=== PATIENT | male | born 1975 | race African-American/Black ===

== ENCOUNTER 2017-02-01 00:29 | Observation (INO) | payer SELFPAY ==
[2017-02-01 03:12] LABS: Troponin I Less than 0.010 ng/mL (< 0.028)
[2017-02-01 04:42] VITALS: BMI 36.8
[2017-02-01 05:12] LABS: #Basophils 0.1 thou/uL (0.0-0.2); #Eosinphils 0.7 thou/uL (0.0-0.7); #Monocytes 0.8 thou/uL (0.11-0.59); #Neutrophils 5.8 thou/uL (1.40-6.50); %Basophils 0.6 % (0.0-1.0); %Eosinophils 6.9 % (0.0-10.0); %Lymphocytes 29.2 % (21.0-51.0); %Monocytes 7.5 % (0.0-10.0); Mean Platelet Volume 7.7 fL (7.4-10.4); Red Blood Cell (RBC) Count 4.68 mill/uL (4.70-6.10); White Blood Cell (WBC) Count 10.4 thou/uL (4.8-10.8)
[2017-02-01 05:33] LABS: Anion Gap 11 mmol/L (10-20); BUN (Urea Nitrogen) 11 mg/dL (8.9-20.6); Calc. Creatinine Clearance 172 mL/min (70-130); Calcium 9.1 mg/dL (7.8-10.44); Carbon Dioxide 26 mmol/L (22-29); Chloride 104 mmol/L (98-107); Cholesterol 161 mg/dl (< 200 Desired); Estimated GFR-MDRD Greater than 90; LDL Cholesterol, Calculated 103 mg/dL
[2017-02-01] MEDS ORDERED: Nicotine 14 MG PATCH TD SCH (06:00)
--- NOTE | 2017-02-01 06:06 | HP-2 ---
DATE OF ADMISSION: 02/01/2017 at 0307 hours DATE OF SERVICE: 02/01/2017 CODE STATUS: FULL. PRIMARY CARE PHYSICIAN: Arsh ramsay. ATTENDING: Carlos Mallory MD PGY1: Graciela Caruso MD HISTORIAN: Patient. CHIEF COMPLAINT: Not feeling well and palpitations. HISTORY OF PRESENT ILLNESS: Mr. Hdez is a 41-year-old male with no past medical history who presents with a chief complaint of heart palpitations. The patient states he was walking from his bedroom to the kitchen when he noticed that his heart started beating fast. He said this never happened before. He said that he then went and laid down and felt better afterward. This occurred yesterday evening at approximately 6:00 p.m. in the evening. He did not take any medications for it at home. He denied chest pain. He denied shortness of breath. He denied nausea, vomiting, diaphoresis. The patient said that the palpitations went completely away after lying down. Once again states this has never happened before. PAST MEDICAL HISTORY: Denies, although states that he has taken medicine for acid reflux in the past. PAST SURGICAL HISTORY: Appendectomy. ALLERGIES: No known drug allergies. MEDICATIONS: Denies. FAMILY HISTORY: Patient states his mom has a defibrillator placed and had an TN in her 50s. The patient states dad had bypass surgery and had TN at 50 years old. SOCIAL HISTORY: The patient states that he smokes about 1 pack per week for 27 years. Patient states he drinks 2-3 alcohol drinks every 2-3 weeks. The patient states that he smokes marijuana every other day. REVIEW OF SYSTEMS: General: Denies fevers, chills, weight changes, sleep change, night sweats, or fatigue. Respiratory: Denies cough, congestion, or shortness of breath. Cardiovascular: Denies chest pain or palpitation. Gastrointestinal: Denies nausea, vomiting, or diarrhea. Musculoskeletal: Denies pain, tenderness, or stiffness. Neurologic: Denies weakness, numbness, or syncope. Psychiatric: Denies anxiety, depression. PHYSICAL EXAMINATION: VITAL SIGNS: Blood pressure 153/100. Pulse is 70, respiratory rate 19, T-max 98, pulse ox 90% on room air. Current weight 116 kilograms. GENERAL: Alert and oriented x4, in no apparent distress, well-developed, well- nourished, obese, appropriately interactive. EYES: PERRLA, EOMI. NECK: Supple. No lymphadenopathy or thyromegaly. CARDIOVASCULAR: Regular rate and rhythm. No murmurs, rubs, or gallops. 2+ pedal and radial pulse. RESPIRATORY: Normal effort, no retractions. Clear to auscultation bilaterally. SKIN: Warm and dry. ABDOMEN: Soft, nontender to palpation. Bowel sounds in all 4 quadrants. No masses or distention. EXTREMITIES: No edema. MUSCULOSKELETAL: Structure within normal limits. Tone within normal limits. Muscle strength 5/5. NEUROLOGIC: Denies focal deficits. Sensation within normal limits. Cranial nerves II through XII intact. GCS of 15. PSYCHIATRIC: Appropriate. LABORATORY DATA: 1. CBC: 11.4, 14.1, 42.6, 259. 2. CMP: 138, 3.7, 106, 22, 13, 0.96, 93. 3. AST, ALT, alkaline phosphatase 19, 15, 119. 4. Total bilirubin 0.4. 5. Magnesium 2.1. 6. CK-MB 2.3. 7. Troponin less than 0.010 x2. 8. Urinalysis negative for blood, protein, leukocyte esterase, nitrites, ketones, glucose, red blood cells, white blood cells, and bacteria. Specific gravity 1.015. 9. UDS positive for marijuana. 10. TSH 1.0681. DIAGNOSTIC DATA: EK. ST depressions, T-wave inversions in leads II and aVF. 2. Normal sinus rhythm, left atrial enlargement. ASSESSMENT AND PLAN: A 41-year-old male with a family history of myocardial infarction and coronary artery disease, presents with palpitations and a funny feeling in his chest with ST depressions and T-wave inversions concerning or describes palpitations on exertion, admitted for palpitations with a concerning EKG. 1. Palpitations. Patient has a concerning family history of TN in mom and dad with new onset palpitations of unknown origin with ST depressions and T-wave inversions on initial EKG, however, with negative troponin and no active chest pain. We will admit the patient overnight and monitor on tele. If patient developed chest pain, we will order an additional EKG. We will plan for an exercise stress test on the treadmill in the morning since the patient has EKG changes and a positive family history as well as a smoking history. We will continue to trend the patient's troponins. We will also order a TSH. If the stress test in the morning is normal and workup for CAD is negative, we will recommend that the patient may need an event monitor in the outpatient setting to help to record a possible cardiac event such as an arrhythmia causing the palpitations described above. These palpitations are new in onset and of unknown origin however resolved. We will monitor the patient on telemetry. We will order a TSH and will plan for a cardiac exercise stress test in the morning. 2. Hypertension, new onset. We will start a calcium channel logan after patient completes his stress test in the morning. We also will order a lipid profile. 3. Drug abuse. Patient was positive for marijuana on sequential compression devices and endorses marijuana use every other day. We will rehabilitation counselor the patient on cessation. The patient also endorses a smoking history of 27 years. We will rehabilitation counselor the patient on smoking cessation as well as provide a nicotine patch. 4. Deep venous thrombosis prophylaxis. We will provide the patient with sequential compression devices. DISPOSITION AND LENGTH OF STAY: Two days. Symptomatic medications will be provided. History and physical exam as well as management discussed with Dr. Mallory. Patient seen on rounds and reviewed. I agree with leung portions of H&P above. 41 year old who presents with palpitations and funny feeling in his chest without chest pain. He is a smoker and likely has longstanding untreated hypertension. His EKG show some lateral ST-T wave changes and looks like LVH. We will check troponins and stress test. He needs to start treatment for his hypertension. We have advised that he stop smoking and DC marijuana usage. RC Mallory MD [facility]
[2017-02-01 06:13] LABS: Troponin I Less than 0.010 ng/mL (< 0.028)
[2017-02-01 12:24] VITALS: BP 161/104; TEMP 97.3
--- NOTE | 2017-02-01 15:07 | NM ---
MYOCARDIAL PERFUSION EVALUATION: DATE: 02/01/17 INDICATION: Chest pain and palpitations. RADIOPHARMACEUTICAL: 31 mCi technetium-99m sestamibi with stress and 9 mCi technetium-99m sestamibi with rest. FINDINGS: There is left ventricular dilatation on both the stress and rest images. No reversible myocardial per fusion defect is evident. There is normal wall motion and thickening. The estimated LVEF is 49%. IMPRESSION: 1. No scintigraphic evidence of reversible myocardial ischemia. 2. Left ventricular dilatation seen on both the rest and stress images. 3. LVEF estimated at 49%. POS: [facility]
--- NOTE | 2017-02-01 23:44 | DIS-2 ---
DATE OF ADMISSION: 02/01/2017 DATE OF DISCHARGE: 02/01/2017 RESIDENT: Ghada Molina DO ADMITTING ATTENDING: Dr. Estuardo Watkins. DISCHARGE ATTENDING: Dr. Carlos Mallory. CONSULTATIONS: None. PROCEDURES: Nuclear medicine cardiac stress with ejection fraction: No evidence of reversible myocardial ischemia. Left ventricular dilatation seen on both the rest and stress images. Left ventricular ejection fraction estimated at 49%. PRIMARY DIAGNOSES: 1. Symptomatic palpitations likely drug induced. 2. Atypical chest pain. SECONDARY DIAGNOSES: 1. Hypertension, newly diagnosed. 2. Marijuana abuse. 3. Family history of early coronary artery disease. DISCHARGE MEDICATIONS: Hydrochlorothiazide 12.5 mg p.o. q.a.m. HISTORY OF PRESENT ILLNESS AND HOSPITAL COURSE: This is a 41-year-old male with no significant past medical history who presented with a chief complaint of heart palpitations. The patient noted these palpitations while walking from his bedroom to the kitchen. He stated that he had a feeling that his heart was beating fast. The patient states that this has happened before, but never to this extent. He felt better after lying down. The patient states that he did not take any new medications at home; however, he had been smoking marijuana prior to the onset of palpitations. He denied any chest pain or shortness of breath. The patient also denied nausea, vomiting, or diaphoresis. Palpitations completely resolved prior to arrival to the emergency department in [place]. The patient was transferred to [facility] in [place], [place] for further evaluation. He was given aspirin. Patient continued to do well and he was observed for greater than 12 hours. During that time, there were no events on telemetry. Additionally, EKG as [facility] was unremarkable. Patient's troponins were negative x3. Fasting lipid panel was within normal limits. Patient's heart score was 3.8. Risk factors include early family history of coronary artery disease. Mother and father both had heart attacks in their 50s. The patient has a history of drug abuse. He admits to using marijuana; however, he denies methamphetamine abuse. Patient is a chronic smoker, he smokes about 1 pack per day and has been doing so for the past 27 years. He also consumes about 2-3 alcoholic drinks every 2-3 weeks. The patient remained stable throughout the course of his hospital stay. A cardiac nuclear stress test was performed to evaluate for myocardial ischemia since there were some ST depression and some T-wave inversions on initial EKG at ED in [place]. Cardiac stress test was negative for any signs of ischemia and ejection fraction was preserved at 49%. Of note, the patient did have elevated blood pressure while in the hospital. He has likely had elevated blood pressure for a long period of time. However, he does not follow with a primary care physician. He was counseled on the necessity for strict blood pressure control to prevent hypertensive cardiomyopathy and secondary congestive heart failure. Hydrochlorothiazide was started. Patient was advised to take this medication at home on a daily basis and to follow up with [facility] for further management from a primary care standpoint. The patient understood the necessity for close followup to ensure that his blood pressure is well controlled. The need for Holter monitoring if palpitations persist was also discussed. Patient was advised that he could do this as an outpatient. DISPOSITION: Stable. DISCHARGE INSTRUCTIONS: 1. Location: Home. 2. Diet: Regular. 3. Activity: As tolerated. 4. Followup: The patient is to follow up with [facility] within the next 7 days for further evaluation of palpitations and further management of hypertension. The patient was in understanding of the plan and agreeable. STEPHAN
[2017-02-02 07:28] LABS: Hepatitis A Total ABS Negative (Negative)
[2017-02-03 13:15] LABS: Hep B Surface AG-Rflx Sendout Negative (Negative); Hepatitis B Core Total Negative (Negative); Hepatitis B Surface AB-Sendout Non Reactive (.); Hepatitis B little e Antibody Negative (Negative); Hepatitis B little e Antigen Negative (Negative)
== END 2017-02-01 17:55 | disposition home or self-care (01) ==
LOC: ERS 00:29 → 2SW 03:52
PROVIDERS: ADMIT Family Medicine; ATTEND Family Medicine
DX: R00.2 Palpitations (principal); R07.89 Other chest pain; I10 Essential (primary) hypertension; F12.10 Cannabis abuse, uncomplicated; F17.210 Nicotine dependence, cigarettes, uncomplicated; Z82.49 Family history of ischemic heart disease and other diseases of the circulatory system
CPT/HCPCS: 36415; 78452; 80048; 80061; 82553; 84443; 84484; 85025; 86704; 86705; 86706; 86707; 86708; 86780; 86803; 87340; 87350; 87389; 93005; 93017; 99406; A9500; G0378; J0153

== ENCOUNTER 2018-03-16 11:56 | Inpatient (IN) | payer SELFPAY ==
[2018-03-16] MEDS ORDERED: Bupivacaine/Epinephrine 0.25% 30 ML VIAL ONE (14:31)
[2018-03-16] MEDS ORDERED: Promethazine HCl 25 MG/ML VIAL IM PRN ×2 (14:32→18:01)
[2018-03-16] MEDS ORDERED: Meperidine HCl/PF 25 MG/ML VIAL SLOW IVP PRN (14:32)
[2018-03-16] MEDS ORDERED: Ketorolac Tromethamine 30 MG/ML VIAL IVP PRN (14:32)
[2018-03-16] MEDS ORDERED: Ondansetron HCl/PF 4 MG/2 ML Vial IVP PRN ×2 (14:32→18:01)
[2018-03-16] MEDS ORDERED: Promethazine HCl 25 MG/ML VIAL SLOW IVP PRN ×2 (14:32→18:01)
[2018-03-16] MEDS ORDERED: Fentanyl 250 MCG/5 ML VIAL ONE (14:35)
[2018-03-16] MEDS ORDERED: Famotidine/PF 20 mg/2ml Vial ONE (14:35)
[2018-03-16] MEDS ORDERED: Fentanyl 100 MCG/2 ML VIAL ONE (14:35)
[2018-03-16] MEDS ORDERED: Piperacillin/Tazobactam 3.375 GM VIAL ONE (15:00)
[2018-03-16] MEDS ORDERED: Sodium Chloride 0.9% 100 ML ONE (15:01)
--- NOTE | 2018-03-16 15:39 | HP ---
CHIEF COMPLAINT: Abdominal pain. HISTORY OF PRESENT ILLNESS: Mr. Hdez is a 42-year-old man, who had sudden onset of lower abdominal crampy abdominal pain this morning. He states that he had a similar episode about a week ago, but he took some Gas-X and it went away. He does have chronic constipation, but has not had any problems with his bowel before. Today, the pain was not getting any better, and it finally got to the point where he could not stand it, so he came into the emergency room. He states that he was having nausea, vomiting, fevers, and chills by that time. He was found to be diffusely tender, and a CT scan showed free air and free fluid in the abdomen without an obvious source. He was started on IV antibiotics and transferred to [facility] for further care. He is still having diffuse abdominal pain. The only worsening factor that he can identify is movement. He has not identified any alleviating factors. PAST MEDICAL HISTORY: Hypertension. PAST SURGICAL HISTORY: Appendectomy. FAMILY HISTORY: Hypertension. SOCIAL HISTORY: He smokes marijuana, drinks rarely, and occasionally smokes 1 to 2 cigarettes. No other illicit drugs. MEDICATIONS: None. ALLERGIES: NO KNOWN DRUG ALLERGIES. REVIEW OF SYSTEMS: Ten-system review of systems is negative except per HPI. PHYSICAL EXAMINATION: VITAL SIGNS: The patient was tachycardic in the emergency room with normal vital signs. GENERAL: Reveals a healthy-appearing man, in no acute distress. He is not flushed or toxic in appearance. He is not diaphoretic. He is not jaundiced or icteric. HEENT: Unremarkable. NECK: Supple without lymphadenopathy or thyroid nodules. HEART: Irregular in its heart rhythm. He is slightly tachycardic. No murmurs, rubs, or gallops. LUNGS: Clear to auscultation bilaterally. ABDOMEN: Soft and nondistended. He does not have any palpable masses or hernias. He is diffusely tender to palpation, but more so in the lower abdomen and suprapubic area. EXTREMITIES: Warm and well perfused without edema. NEUROLOGIC: No focal deficits. PSYCHIATRIC: Alert, oriented, and appropriate. LABORATORY DATA: White count is high normal at 10.5 with 71% segmented neutrophils. Electrolytes are unremarkable except for a slightly low potassium of 3.3. LFTs and lipase are normal. CT images are reviewed, and I agree with the written report. He has multiple colonic diverticula without obvious diverticulosis. There are sort of diffuse inflammatory changes, free fluid, and free air throughout the abdomen. ASSESSMENT: Perforated viscus of unclear etiology. Most of his pain and tenderness are in the lower abdomen, which suggest a colonic etiology such as a perforated diverticulum, but a small bowel or upper GI etiology such as peptic ulcer disease is also possible. I have recommended laparoscopic evaluation with Murali patch or repair of ulcer disease if located, small bowel repair or resection if identified, or possible colonic resection and colostomy if colonic perforation is identified. Given the presence of diverticula, it is possible this was a perforated diverticulum, which may or may not still be leaking. If this appears to have sealed, then the laparoscopic washout may be appropriate without resection; however, the patient is consented for colostomy if indicated. Inherent risks of the surgery include, but are not limited to, bleeding, infection, risks of anesthesia, damage to internal organs, need for re-operation, and need for open surgery. He understands and accepts these risks and wishes to proceed. He received Zosyn in the emergency room, and this will be continued perioperatively. All of his questions were answered. Job ID: [id number]
[2018-03-16] MEDS ORDERED: Succinylcholine Chloride 20 MG/ML 10 ml SYRINGE FS ONE (16:13)
[2018-03-16] MEDS ORDERED: Dexamethasone 20 MG/5 ML VIAL ONE (16:13)
[2018-03-16] MEDS ORDERED: Esmolol 100 MG/10 ML VIAL ONE (16:13)
[2018-03-16] MEDS ORDERED: PROPOFOL 200 MG/20 ML VIAL ONE (16:13)
[2018-03-16] MEDS ORDERED: Rocuronium Bromide 10 MG/ML (10ML VIAL) ONE (16:13)
[2018-03-16] MEDS ORDERED: Lidocaine 1% PF 5 ML VIAL ONE (16:13)
[2018-03-16] MEDS ORDERED: Glycopyrrolate 0.2 MG/ML 5 ML SYRINGE ONE (16:13)
[2018-03-16] MEDS ORDERED: HYDROmorphone 2 MG/ML VIAL ONE (16:37)
[2018-03-16] MEDS ORDERED: Morphine 10 MG/ML VIAL SLOW IVP PRN (18:21)
[2018-03-16] MEDS ORDERED: Ondansetron PF 4 MG/2 ML Vial IVP PRN (18:23)
[2018-03-16 18:55] VITALS: BMI 34.7
[2018-03-16] MEDS: D5 1/2 NS w/20 mEq KCL 1,000 ML IV SCH (20:16)
[2018-03-16] MEDS: Pantoprazole 40 MG VIAL IVP SCH (20:16)
[2018-03-16] MEDS: Piperacillin/Tazobactam 3.375 GM in Sodium Chloride 0.9% 100 ML IVPB SCH (20:26)
[2018-03-16] MEDS: Morphine 4 MG/ML VIAL SLOW IVP PRN (21:23)
[2018-03-17] MEDS: Morphine 4 MG/ML VIAL SLOW IVP PRN ×4 (00:01→21:07)
[2018-03-17] MEDS: Acetaminophen 1,000 MG in Premix Bag 1 BAG IVPB SCH ×5 (00:01→23:16)
[2018-03-17] MEDS: Ketorolac Tromethamine 30 MG/ML VIAL IVP PRN (03:55)
[2018-03-17] MEDS: Piperacillin/Tazobactam 3.375 GM in Sodium Chloride 0.9% 100 ML IVPB SCH ×4 (03:55→19:53)
[2018-03-17] MEDS: D5 1/2 NS w/20 mEq KCL 1,000 ML IV SCH ×4 (04:04→23:28)
[2018-03-17 07:24] LABS: Hemoglobin 12.7 g/dL (14.0-18.0); Mean Corpuscular Hemoglobin 29.6 pg (27.0-31.0); Mean Corpuscular Volume 89.8 fL (78.0-98.0); Mean Platelet Volume 7.5 fL (7.4-10.4); Platelet Count 413 thou/uL (130-400); RBC Distribution Width 12.1 % (11.5-14.5); Red Blood Cell (RBC) Count 4.29 mill/uL (4.70-6.10); White Blood Cell (WBC) Count 20.2 thou/uL (4.8-10.8)
[2018-03-17 07:34] LABS: Anion Gap 12 mmol/L (10-20); BUN (Urea Nitrogen) 11 mg/dL (8.9-20.6); Calc. Creatinine Clearance 144 mL/min (70-130); Calcium 9.2 mg/dL (7.8-10.44); Carbon Dioxide 25 mmol/L (22-29); Chloride 104 mmol/L (98-107); Estimated GFR-MDRD 83; Glucose 143 mg/dL (70-105); Potassium 4.8 mmol/L (3.5-5.1); Sodium 136 mmol/L (136-145)
[2018-03-17 08:04] LABS: Band 5 % (5-11); Lymphocytes 5 % (21-51); MDiff Complete? YES; Monocytes 3 % (0-10); Neutrophil 85 % (42-75); RBC Morphology Normal; Reactive Lymphocytes 2 % (0-10)
[2018-03-17] MEDS: Enoxaparin Sodium 40 MG/0.4 ML SYRINGE SC SCH (09:18)
[2018-03-17] MEDS ORDERED: hydrALAZINE 20 MG/ML VIAL SLOW IVP SCH (09:30)
--- NOTE | 2018-03-17 11:33 | PDOC.OP ---
Operative Note - Operative Note Operative Note: PROCEDURE: Laparoscopic hand-assisted washout and drainage of diverticular abscess DATE OF PROCEDURE: 03/16/2018 SURGEON: Chavez Kimble M.D. PREOPERATIVE DIAGNOSES: Perforated viscus POSTOPERATIVE DIAGNOSIS:. Peritonitis due to diverticular abscess HISTORY: Patient with a one-week history of lower abdominal pain which resolved and then returned. He was found to have free air and free fluid on CT scan without obvious source. Recommendation was made to proceed to the operating room for laparoscopy, possible laparotomy, possible bowel resection or ostomy. FINDINGS: Diverticulitis with dense omental adhesions and chronic-appearing diverticular abscess without evidence of ongoing drainage or leak. Purulent peritonitis without any other abnormalities in stomach duodenum or small bowel. PROCEDURE IN DETAIL: After informed consent was obtained and appropriate preoperative antibiotics were administered the patient was taken to the operating room he was placed in supine position and general endotracheal anesthesia was administered the stomach and bladder were decompressed with an OG tube and a Snatana catheter and he was prepped and draped in the standard sterile fashion. Local anesthesia was infused to the skin and subcutaneous tissues at the umbilicus. A transverse skin incision was made. The fascia was elevated and a Veress needle placed into the abdominal cavity without difficulty. Opening pressure was 7 and carbon dioxide gas easily insufflated to an intra-abdominal pressure of 15 which the patient tolerated well. The Veress needle was withdrawn and a [place] port advanced under direct laparoscopic vision into the abdominal cavity which was carefully examined. The patient was noted to have purulent peritonitis and lower abdominal omental adhesions. Local anesthesia was infused the skin and subcutaneous tissues at the right lateral and left lateral abdominal sites where there were no adhesions. Skin incisions were made and trochars placed under direct laparoscopic vision. Area on peritoneal fluid was aspirated and sent for Gram stain and culture. Most of the omental adhesions were able to be mobilized by blunt dissection between the anterior abdominal wall and the omentum but there were some dense adhesions to the lower midline which could not be taken down by blunt dissection. These were divided under direct vision using the LigaSure device. The patient was also noted to have omental adhesions to the cecum which were carefully divided using LigaSure. Most of the omentum was densely adherent to the sigmoid colon which was noted to be thickened and inflamed consistent with diverticulitis. There were some dense small bowel adhesions which could not be mobilized off of the sigmoid colon laparoscopically. Therefore the decision was made to place a hand port. The umbilical trocar was removed and a 6 cm periumbilical incision made. The GelPort was placed and the small bowel adhesions to the sigmoid colon were taken down digitally under laparoscopic vision. The small bowel was inflamed but intact and without injury and without evidence of obstruction. After the small bowel adhesions were taken down a diverticular abscess was encountered and completely drained. This appeared to be quite chronic, possibly dating back to the episode of pain that the patient had last week. There was no evidence of ongoing feculent drainage or contamination and the inflamed segment of sigmoid colon was contained by chronic omental adhesions. There was no evidence of obstruction as the remainder of the colon was non-dilated. The remainder of the small bowel was grossly normal and the stomach duodenum and gallbladder were also normal to palpation and inspection. The decision was made to proceed with laparoscopic washout and drain placement in an attempt to avoid colostomy. The abdomen was copiously irrigated with 6 L of warm saline until all return was clear. 2 BRENNON drains were placed through the lateral trocar sites with the left drain placed into the pelvis and the right drain placed into the chronic abscess cavity. These were secured to the skin. The omentum was drawn down over the bowel contents and the GelPort removed. Seprafilm was placed between the omentum and anterior abdominal wall at this location and the fascia was closed under direct vision with a running PDS suture. An umbilical and supraumbilical hernia were identified and closed during the fascial closure. These contained preperitoneal fat only. The midline wound was copiously irrigated and closed at intervals with 4-0 Monocryl suture. Telfa uday were placed into the wound and sterile gauze and Tegaderm dressings were placed at each incision. The BRENNON drains were placed to suction and the patient was extubated and taken to recovery in good condition. Estimated blood loss was minimal. There were no complications. Specimen is pus for Gram stain and culture.
--- NOTE | 2018-03-17 11:52 | PDOC.GSPN ---
Surgery Progress Note: Subj - Subjective Narrative: Patient is feeling much better today. He is sore from his surgery but the abdominal pain that he was experiencing yesterday is much improved. He is not nauseated and is tolerating ice chips but has not yet passed gas or had a bowel movement. He has not yet ambulated. He is afebrile. His blood pressure has been up but his heart rate has come down. His abdomen is soft and nondistended. He does have bowel sounds. He has some serosanguineous drainage from the right BRENNON tube and some serous drainage from the left. Urine is clear. White count is elevated at 20,000. Assessment/plan: Purulent peritonitis due to diverticulitis. He underwent laparoscopic washout and drainage of diverticular abscess. He understands that if he continues to have evidence of ongoing leakage due to his diverticulitis he will require sigmoid colectomy and descending colostomy. However, clinically he has improved and we are going to continue with a trial of antibiotics and drainage. We'll advance his diet to clear liquids as tolerated. He was encouraged to ambulate at least 4 times today in the cutler. We will discontinue his Santana catheter once he is ambulatory. Internal medicine has been consulted for management of his hypertension which is known but untreated. Surgery Progress Note: Obj - Vital signs Vital signs: Vital Signs - Most Recent Temp Pulse Resp BP Pulse Ox 98.3 F 82 14 180/131 H 96 03/17/18 11:43 03/17/18 11:43 03/17/18 11:43 03/17/18 11:43 03/17/18 11:43 Surgery Progress Note: Results - Labs Result Diagrams: 03/17/18 06:32 03/17/18 06:32 Lab results: Laboratory Results - last 24 hr 03/17/18 03/17/18 06:32 06:32 WBC 20.2 H RBC 4.29 L Hgb 12.7 L Hct 38.6 L MCV 89.8 MCH 29.6 MCHC 33.0 RDW 12.1 Plt Count 413 H MPV 7.5 Neutrophils % (Manual) 85 H Band Neuts % (Manual) 5 Lymphocytes % (Manual) 5 L Reactive Lymphs % 2 Monocytes % (Manual) 3 Neutrophils # Not Reportable Lymphocytes # Not Reportable RBC Morph Comment Normal Sodium 136 Potassium 4.8 Chloride 104 Carbon Dioxide 25 Anion Gap 12 BUN 11 Creatinine 1.17 Estimated GFR (MDRD) 83 Glucose 143 H Calcium 9.2
--- NOTE | 2018-03-17 15:37 | CON ---
DATE OF CONSULTATION: 03/17/2018 PRIMARY SERVICE ATTENDING: Dr. Kimble. PRIMARY CARE PROVIDER: Previously [id number]. REASON FOR CONSULTATION: Elevated blood pressure. HISTORY OF PRESENT ILLNESS: This is a 42-year-old male, who presented to [facility] Emergency Department on 03/16/2018 with severe abdominal pain. The patient underwent evaluation including CT imaging showing free air in the abdomen without obvious source. The patient was evaluated by the General Surgery Service after receiving IV antibiotics and IV fluids. Due to the patient's abdominal findings on clinical exam in conjunction with CT imaging, the patient underwent laparoscopic evaluation with evidence of perisigmoid abscess with adhesions and diffuse peritonitis. The patient received abdominal washout and continued with IV antibiotics with Zosyn. The patient has been noted with elevated blood pressures throughout the hospital course, and the patient relates a history of hypertension, previously treated with hydrochlorothiazide, last taken approximately 6 months prior to this evaluation. The patient states he stopped taking the medication after his mother and has not refilled his prescription. The patient does admit to a strong family history of hypertension and diabetes. The patient currently denies any specific chest pain, visual disturbance, unilateral weakness, or shortness of breath. PAST MEDICAL HISTORY: 1. Hypertension, previously treated. 2. Morbid obesity. 3. Marijuana use. PAST SURGICAL HISTORY: Status post appendectomy. OUTPATIENT MEDICATIONS: Hydrochlorothiazide 12.5 mg p.o. daily, last taken 6 months prior to this evaluation. ALLERGIES: NO KNOWN DRUG ALLERGIES. FAMILY HISTORY: Positive for hypertension and diabetes mellitus in multiple family members. SOCIAL HISTORY: The patient smokes up to 2 to 3 cigarettes occasionally. Admits to smoking marijuana regularly. Occasional alcohol use. Currently unemployed. Resides in the [facility]. REVIEW OF SYSTEMS: CONSTITUTIONAL: Negative for weight loss or gain, ability to conduct usual activities. SKIN: Negative for rash, itching. EYES: Negative for double vision, pain. ENT/MOUTH: Negative for nose bleeding, neck stiffness, pain, tenderness. CARDIOVASCULAR: Negative for palpitations, dyspnea on exertion, orthopnea. RESPIRATORY: Negative for shortness of breath, wheezing, cough, hemoptysis, fever or night sweats. GASTROINTESTINAL: Negative for poor appetite, abdominal pain, heartburn, nausea , vomiting, constipation, or diarrhea. GENITOURINARY: Negative for urgency, frequency, dysuria, nocturia. MUSCULOSKELETAL: Negative for pain, swelling. NEUROLOGIC/PSYCHIATRIC: Negative for anxiety, depression. ALLERGY/IMMUNOLOGIC: Negative for skin rash, bleeding tendency. Otherwise negative except as stated per HPI. PHYSICAL EXAMINATION: VITAL SIGNS: Currently blood pressure 153/108, pulse 83, respiratory rate 16, temperature 97.3 degrees Fahrenheit, and O2 saturation 92% on room air. GENERAL APPEARANCE: This is a 42-year-old male, alert and oriented x3, pleasant, conversant, in no acute distress. HEENT: Pupils are equal, round, and reactive to light and accommodation. Extraocular muscles are intact. No scleral icterus. No conjunctival injection. Nares patent. OP is clear. Teeth in good repair. NECK: Supple. No cervical adenopathy. No thyromegaly. No carotid bruits. No JVD noted. Cervical spine with full active and passive range of motion. CHEST: Lungs are clear to auscultation bilaterally. CARDIOVASCULAR: S1 and S2 without noted murmur, rub, or gallop. ABDOMEN: Rounded with mild tenderness to palpation. Laparoscopic surgical sites with dressings in place. Bowel sounds noted in all 4 quadrants. No palpable mass. EXTREMITIES: Warm and dry with fair turgor. No clubbing, cyanosis, or asymmetric edema appreciated. Pulses palpable distally at the dorsalis pedis, posterior tibial, and popliteal arteries bilaterally. Capillary refill less than 2 seconds. NEUROLOGIC: Cranial nerves 2 through 12 are grossly intact. No focal or lateralizing signs appreciated. PERTINENT LABORATORY DATA AND X-RAY FINDINGS: Sodium 136, potassium 4.8, chloride 104, CO2 of 25, BUN 11, creatinine 1.17, estimated GFR of 83, glucose 143, calcium 9.2. CBC showed a white blood cell count of 20.2, hemoglobin 13, hematocrit 39, platelet count 413, with 85% neutrophils. Peritoneal fluid culture dated 2018 showed rare gram-positive cocci. CT of the abdomen and pelvis dated 03/16/2018 showed evidence of perforated viscus with free air. EKG dated 03/16/2018 by my interpretation shows sinus tachycardia with heart rates in the high 110s. Normal R-wave progression noted in the precordial leads. Normal axis. T-wave flattening in leads V4 through V6. No acute ST-T wave changes noted. ASSESSMENT AND PLAN: 1. Hypertension. Labile due to noncompliance with outpatient medication regimen and current presentation with peritonitis. We will initiate metoprolol 12.5 mg p.o. b.i.d. and titrate to clinical response. Add hydralazine 10 mg IV q.4 hours p.r.n. systolic blood pressure greater than or equal to 180. Continue to monitor serial blood pressures and titrate to optimal response. 2. Acute peritonitis. Status post laparoscopy with abdominal washout and abscess drainage. Postop day #1. Continue IV Zosyn as directed by the General Surgery Service. Pain control as clinically indicated. Continue IV fluids and advance diet as clinically tolerated. 3. Neutrophilic leukocytosis. Secondary to #2. I suspect he will continue to improve with supportive management and IV antibiotics. Serial CBC monitoring. 4. Marijuana use. We will offer resources regarding cessation programs. 5. Prophylaxis. SCDs while in bed. Protonix 40 mg IV daily. 6. Code status is full. Surrogate medical decision maker is Gemma aCrdoso. Thank you for the consultation. We will continue to follow with primary service. Job ID: [id number] [facility]
[2018-03-17] MEDS: hydrALAZINE 20 MG/ML VIAL SLOW IVP PRN ×2 (18:59→23:28)
[2018-03-17] MEDS: Metoprolol Tartrate 25 MG TAB PO SCH (19:51)
[2018-03-17] MEDS: Pantoprazole 40 MG VIAL IVP SCH (19:52)
[2018-03-18] MEDS: cloNIDine 0.1 MG TAB PO PRN ×3 (00:46→18:23)
[2018-03-18] MEDS: hydrALAZINE 20 MG/ML VIAL SLOW IVP PRN (03:27)
[2018-03-18] MEDS: Piperacillin/Tazobactam 3.375 GM in Sodium Chloride 0.9% 100 ML IVPB SCH ×4 (03:28→20:48)
[2018-03-18 07:52] LABS: Hemoglobin 13.5 g/dL (14.0-18.0); Mean Corpuscular HGB CONC 30.8 g/dL (32.0-36.0); Mean Corpuscular Hemoglobin 28.2 pg (27.0-31.0); Mean Corpuscular Volume 91.3 fL (78.0-98.0); Mean Platelet Volume 7.4 fL (7.4-10.4); Platelet Count 518 thou/uL (130-400); RBC Distribution Width 12.3 % (11.5-14.5); White Blood Cell (WBC) Count 22.1 thou/uL (4.8-10.8)
[2018-03-18] MEDS: D5 1/2 NS w/20 mEq KCL 1,000 ML IV SCH (07:52)
[2018-03-18 07:56] LABS: Anion Gap 13 mmol/L (10-20); BUN (Urea Nitrogen) 12 mg/dL (8.9-20.6); Calc. Creatinine Clearance 152 mL/min (70-130); Calcium 9.6 mg/dL (7.8-10.44); Carbon Dioxide 22 mmol/L (22-29); Chloride 104 mmol/L (98-107); Estimated GFR-MDRD 88; Glucose 142 mg/dL (70-105); Potassium 4.3 mmol/L (3.5-5.1); Sodium 135 mmol/L (136-145)
[2018-03-18] MEDS: Morphine 4 MG/ML VIAL SLOW IVP PRN (08:01)
[2018-03-18] MEDS: Metoprolol Tartrate 25 MG TAB PO SCH ×2 (08:04→20:42)
[2018-03-18] MEDS: Enoxaparin Sodium 40 MG/0.4 ML SYRINGE SC SCH (08:05)
[2018-03-18 08:16] LABS: Band 5 % (5-11); Eosinophils 4 % (0-10); Lymphocytes 7 % (21-51); MDiff Complete? YES; Monocytes 4 % (0-10); Neutrophil 75 % (42-75); RBC Morphology Normal; Reactive Lymphocytes 5 % (0-10)
[2018-03-18] MEDS ORDERED: hydrALAZINE 20 MG/ML VIAL SLOW IVP SCH (10:15)
[2018-03-18] MEDS ORDERED: Metoprolol Tartrate 25 MG TAB PO SCH (10:15)
--- NOTE | 2018-03-18 14:45 | ULT ---
ULTRASOUND RENAL DOPPLER DUPLEX: Date: 03/18/18 HISTORY: 42-year-old male with hypertension. TECHNIQUE: Connell scale images of bilateral kidneys. Color flow and spectral analysis of arteries associated with the bilateral kidneys. Bladder not evalu ated. FINDINGS: Right Kidney: 11.5 x 5 x 6 cm. Left Kidney: 11.5 x 5.5 x 5.5 cm. No hydronephrosis bilaterally. Bilateral renal parenchymal echogenicity and parenchymal thickness are normal. No moderate size or large solid or cystic renal mass identified. Highest Peak Systolic Velocities: Right renal artery: 52 cm/s Left renal artery: 25 cm/s Aorta: 35 cm/s Renal Artery/Aorta Ratios: Right: 1.5 Left: 0.7 Resistive Indices: Right arcuate: 0.58 Left arcuate: 0.52 IMPRESSION: Normal. POS: [facility]
[2018-03-18] MEDS ORDERED: hydrALAZINE 20 MG/ML VIAL SLOW IVP PRN (18:18)
--- NOTE | 2018-03-18 18:20 | PDOC.PN ---
- Subjective Encounter Start Date: 03/18/18 Encounter Start Time: 18:15 Subjective: f/u for HTN uncontrolled on current Metoprolol with prn Hydralazine. -: Some abd pain, no CP or SOB. - Objective MAR Reviewed: Yes Vital Signs & Weight: Vital Signs (12 hours) Temp Pulse Resp BP BP Pulse Ox 03/18/18 15:28 99.3 F 82 20 187/135 H 97 03/18/18 11:10 98.4 F 90 20 177/105 H 98 03/18/18 10:55 180/113 H 03/18/18 08:01 180/113 H 03/18/18 07:15 98.4 F 86 18 169/114 H 97 Weight Weight 270 lb I&O: 03/17/18 03/18/18 03/19/18 06:59 06:59 06:59 Intake Total 2100 850 Output Total 1390 2080 500 Balance 710 -2080 350 Result Diagrams: 03/18/18 06:31 03/18/18 06:31 Additional Labs: Microbiology 03/18/18 11:05 Jerry Fluid Bacterial Culture - Preliminary 03/16/18 15:40 Peritoneal fluid Body Fluid Culture - Preliminary Gram Negative [facility] Tests 03/17/18 06:32 WBC 20.2 H Plt Count 413 H Radiology Reviewed by me: Yes (Renal sono - negative) Phys Exam - Physical Examination Constitutional: NAD HEENT: PERRLA, sclera anicteric, oral pharynx no lesions Neck: no nodes, no JVD, supple, full ROM Respiratory: no wheezing, no rales, no rhonchi, clear to auscultation bilateral S1, S2 Cardiovascular: RRR, no significant murmur, no rub, gallop diminished bowel sounds, surgical dressings in place Gastrointestinal: soft, positive bowel sounds Musculoskeletal: no edema, pulses present Neurological: normal sensation, moves all 4 limbs Psychiatric: A&O x 3 Skin: normal turgor, cap refill <2 seconds Dx/Plan (1) HTN (hypertension) Code(s): I10 - ESSENTIAL (PRIMARY) HYPERTENSION Status: Chronic Qualifiers: Hypertension type: essential hypertension Qualified Code(s): I10 - Essential (primary) hypertension Comment: Labile, increase Metoprolol 25mg BID, add Norvasc 10mg daily, Hydralazine 20mg IV q4h prn, Clonidine 0.1mg po q4h prn (2) Peritonitis (acute) generalized Code(s): K65.0 - GENERALIZED (ACUTE) PERITONITIS Status: Acute Comment: s/p laparoscopic washout and abscess drainage POD #2, pain control, continue Zosyn (3) Abdominal pain Code(s): R10.9 - UNSPECIFIED ABDOMINAL PAIN Status: Acute Qualifiers: Abdominal location: generalized Qualified Code(s): R10.84 - Generalized abdominal pain Comment: Secondary to #2, pain control, OOB/ambulate (4) Marijuana use Code(s): F12.90 - CANNABIS USE, UNSPECIFIED, UNCOMPLICATED Status: Chronic Comment: Cessation resources - Plan continue antibiotics, social worker clinical, out of bed/ambulate, DVT proph w/SCDs Stable currently -: Increase Metoprolol 25mg BID -: Add Norvasc 10mg daily -: OOB/ambulate -: Clear liquids per GS service * AM lab: CBC
[2018-03-18] MEDS: Ketorolac Tromethamine 30 MG/ML VIAL IVP PRN (18:25)
[2018-03-18] MEDS ORDERED: Amlodipine 10 MG TAB PO SCH (18:30)
[2018-03-18] MEDS: Pantoprazole 40 MG VIAL IVP SCH (20:49)
--- NOTE | 2018-03-18 20:52 | EKG ---
Test Reason : POST OP Blood Pressure : / mmHG Vent. Rate : 116 BPM Atrial Rate : 116 BPM P-R Int : 120 ms QRS Dur : 080 ms QT Int : 332 ms P-R-T Axes : 063 006 -48 degrees QTc Int : 461 ms Sinus tachycardia Nonspecific ST and T wave abnormality Abnormal ECG Confirmed by Kelley CORDOVA ([id number]) on 03/18/2018 8:51:44 PM Referred By: KEHINDE Confirmed By:Kelley CORDOVA
[2018-03-19] MEDS: Ketorolac Tromethamine 30 MG/ML VIAL IVP PRN (03:41)
[2018-03-19] MEDS: Morphine 4 MG/ML VIAL SLOW IVP PRN ×2 (03:45→21:21)
[2018-03-19] MEDS: Piperacillin/Tazobactam 3.375 GM in Sodium Chloride 0.9% 100 ML IVPB SCH ×4 (03:46→21:33)
[2018-03-19] MEDS: cloNIDine 0.1 MG TAB PO PRN (06:19)
[2018-03-19 06:54] LABS: #Lymphocytes 2.1 thou/uL (1.20-3.40); #Monocytes 0.9 thou/uL (0.11-0.59); #Neutrophils 15.3 thou/uL (1.40-6.50); %Basophils 0.2 % (0.0-1.0); %Eosinophils 5.4 % (0.0-10.0); %Lymphocytes 11.1 % (21.0-51.0); %Monocytes 4.5 % (0.0-10.0); %Neutrophils 78.9 % (42.0-75.0); Mean Corpuscular HGB CONC 33.2 g/dL (32.0-36.0); Mean Corpuscular Hemoglobin 29.8 pg (27.0-31.0); Mean Corpuscular Volume 89.9 fL (78.0-98.0); Platelet Count 443 thou/uL (130-400); RBC Distribution Width 12.6 % (11.5-14.5); Red Blood Cell (RBC) Count 4.37 mill/uL (4.70-6.10); White Blood Cell (WBC) Count 19.4 thou/uL (4.8-10.8)
[2018-03-19] MEDS: Amlodipine 10 MG TAB PO SCH (08:05)
[2018-03-19] MEDS: Enoxaparin Sodium 40 MG/0.4 ML SYRINGE SC SCH (08:05)
[2018-03-19] MEDS: Metoprolol Tartrate 25 MG TAB PO SCH (08:05)
--- NOTE | 2018-03-19 12:32 | PRG ---
DATE OF SERVICE: 03/19/2018 SUBJECTIVE: Gus Hdez, a 42-year-old male patient seen for Dr. Kimble. The patient is status post 03/17/2018, laparoscopic abdominal washout and drainage of diverticular abscess. Cultures reveal gram-negative barb. OBJECTIVE: VITAL SIGNS: Temperature 98.5 degrees, pulse 80, blood pressure 180/ . LUNGS: Clear to auscultation. CARDIAC: Regular rate and rhythm without murmur or gallop. ABDOMEN: Soft. Postoperative tenderness. LABORATORY DATA: White count 19 down from 22,000, hemoglobin 13. Basic metabolic profile not checked. Drain: Left BRENNON 100, right BRENNON 90. ASSESSMENT AND PLAN: Status post laparoscopic drainage of diverticular abscess. Continue intravenous antibiotics and monitoring. He is on clear liquids, may advance him to full liquids tomorrow. Continue treatment. Job ID: [id number]
--- NOTE | 2018-03-19 14:40 | PDOC.PN ---
- Subjective Encounter Start Date: 03/19/18 Encounter Start Time: 14:35 Subjective: f/u for HTN that remains labile. No current complaints. Abd with mild -: tenderness but tolerating liquid diet. Ambulating without difficulty. -: + loose stool - Objective MAR Reviewed: Yes Vital Signs & Weight: Vital Signs (12 hours) Temp Pulse Resp BP BP Pulse Ox 03/19/18 10:45 98.5 F 80 22 H 180/117 H 98 03/19/18 10:20 78 148/96 H 03/19/18 09:12 154/105 H 03/19/18 08:05 82 147/105 H 97 03/19/18 07:19 97.3 F L 82 20 147/105 H 97 03/19/18 06:19 164/97 H 03/19/18 04:00 98.6 F 88 20 153/101 H 96 Weight Weight 270 lb I&O: 03/18/18 03/19/18 03/20/18 06:59 06:59 06:59 Intake Total 850 1200 Output Total 2080 690 1400 Balance -2080 160 -200 Result Diagrams: 03/19/18 06:04 03/18/18 06:31 Additional Labs: Microbiology 03/18/18 11:05 Jerry Fluid Bacterial Culture - Preliminary 03/16/18 15:40 Peritoneal fluid Body Fluid Culture - Preliminary Gram Negative Julius Laboratory Tests 03/17/18 06:32 WBC 20.2 H Plt Count 413 H Phys Exam - Physical Examination Constitutional: NAD HEENT: PERRLA, sclera anicteric, oral pharynx no lesions Neck: no nodes, no JVD, supple, full ROM Respiratory: no wheezing, no rales, no rhonchi, clear to auscultation bilateral S1, S2 Cardiovascular: RRR, no significant murmur, no rub, gallop surgical dressings in place Gastrointestinal: soft, no distention, positive bowel sounds Musculoskeletal: no edema, pulses present Neurological: normal sensation, moves all 4 limbs Psychiatric: A&O x 3 Skin: normal turgor, cap refill <2 seconds Dx/Plan (1) HTN (hypertension) Code(s): I10 - ESSENTIAL (PRIMARY) HYPERTENSION Status: Chronic Qualifiers: Hypertension type: essential hypertension Qualified Code(s): I10 - Essential (primary) hypertension Comment: Labile, increase Metoprolol 75mg BID, add Norvasc 10mg daily, Hydralazine 20mg IV q4h prn, Clonidine 0.1mg po q4h prn, Add Clonidine patch 0.2mg and Lisinopril 10mg BID (2) Peritonitis (acute) generalized Code(s): K65.0 - GENERALIZED (ACUTE) PERITONITIS Status: Acute Comment: s/p laparoscopic washout and abscess drainage POD #3, pain control, continue Zosyn (3) Abdominal pain Code(s): R10.9 - UNSPECIFIED ABDOMINAL PAIN Status: Acute Qualifiers: Abdominal location: generalized Qualified Code(s): R10.84 - Generalized abdominal pain Comment: Secondary to #2, pain control, OOB/ambulate (4) Marijuana use Code(s): F12.90 - CANNABIS USE, UNSPECIFIED, UNCOMPLICATED Status: Chronic Comment: Cessation resources - Plan continue antibiotics, out of bed/ambulate, DVT proph w/SCDs Stable currently -: Increase Metoprolol 75mg BID -: Add Lisinopril 10mg BID -: Add Catapres 0.2mg TD -: Continue Norvasc 10mg daily * .
[2018-03-19] MEDS ORDERED: Metoprolol Tartrate 50 MG TAB PO SCH (14:45)
[2018-03-19] MEDS ORDERED: Lisinopril 10 MG TAB PO SCH (14:45)
[2018-03-19] MEDS: cloNIDine 0.2mg/24 Hour PATCH TD SCH (15:04)
[2018-03-19] MEDS: Lisinopril 10 MG TAB PO SCH (21:25)
[2018-03-19] MEDS: Metoprolol Tartrate 50 MG TAB PO SCH (21:26)
[2018-03-19] MEDS: Pantoprazole 40 MG VIAL IVP SCH (21:31)
[2018-03-20] MEDS ORDERED: Morphine 4 MG/ML VIAL SLOW IVP PRN (03:34)
[2018-03-20] MEDS: Piperacillin/Tazobactam 3.375 GM in Sodium Chloride 0.9% 100 ML IVPB SCH ×4 (03:37→21:17)
[2018-03-20] MEDS: Ketorolac Tromethamine 30 MG/ML VIAL IVP PRN ×2 (03:52→21:21)
[2018-03-20] MEDS: cloNIDine 0.1 MG TAB PO PRN ×2 (04:04→15:39)
[2018-03-20] MEDS: Metoprolol Tartrate 50 MG TAB PO SCH (08:03)
[2018-03-20] MEDS: Enoxaparin Sodium 40 MG/0.4 ML SYRINGE SC SCH (08:03)
[2018-03-20] MEDS: Amlodipine 10 MG TAB PO SCH (08:03)
[2018-03-20] MEDS: Lisinopril 10 MG TAB PO SCH (08:03)
--- NOTE | 2018-03-20 13:56 | PDOC.PN ---
- Subjective Encounter Start Date: 03/20/18 Encounter Start Time: 13:50 Subjective: f/u for labile HTN and s/p laparoscopic drainage of queenie-sigmoid abscess -: with peritonitis. Receiving Zosyn currently. BP remains labile. - Objective MAR Reviewed: Yes Vital Signs & Weight: Vital Signs (12 hours) Temp Pulse Resp BP BP Pulse Ox 03/20/18 12:00 98.5 F 71 20 96 03/20/18 09:35 67 134/84 03/20/18 08:03 70 152/102 H 96 03/20/18 07:28 98.8 F 72 18 154/102 H 96 03/20/18 04:04 165/103 H 03/20/18 04:00 98.4 F 70 16 165/103 H 97 Weight Weight 270 lb I&O: 03/19/18 03/20/18 03/21/18 06:59 06:59 06:59 Intake Total 850 2000 Output Total 690 2040 Balance 160 -40 Result Diagrams: 03/19/18 06:04 03/18/18 06:31 Additional Labs: Microbiology 03/18/18 11:05 Jerry Fluid Bacterial Culture - Preliminary 03/16/18 15:40 Peritoneal fluid Body Fluid Culture - Preliminary Gram Negative Julius Laboratory Tests 03/17/18 06:32 WBC 20.2 H Plt Count 413 H Phys Exam - Physical Examination Constitutional: NAD HEENT: PERRLA, sclera anicteric, oral pharynx no lesions Neck: no nodes, no JVD, supple, full ROM Respiratory: no wheezing, no rales, no rhonchi, clear to auscultation bilateral S1, S2 Cardiovascular: RRR, no significant murmur, no rub, gallop surgical sites CDI Gastrointestinal: soft, non-tender, no distention, positive bowel sounds Musculoskeletal: no edema, pulses present Neurological: normal sensation, moves all 4 limbs Psychiatric: normal affect, A&O x 3 Skin: normal turgor, cap refill <2 seconds Dx/Plan (1) HTN (hypertension) Code(s): I10 - ESSENTIAL (PRIMARY) HYPERTENSION Status: Chronic Qualifiers: Hypertension type: essential hypertension Qualified Code(s): I10 - Essential (primary) hypertension Comment: Labile, increase Metoprolol 100mg BID, add Norvasc 10mg daily, Hydralazine 20mg IV q4h prn, Clonidine 0.1mg po q4h prn, Add Clonidine patch 0.2mg and increase Lisinopril 20mg BID, start Hydralazine 75mg TID (2) Peritonitis (acute) generalized Code(s): K65.0 - GENERALIZED (ACUTE) PERITONITIS Status: Acute Comment: s/p laparoscopic washout and abscess drainage POD #4, pain control, continue Zosyn (3) Abdominal pain Code(s): R10.9 - UNSPECIFIED ABDOMINAL PAIN Status: Acute Qualifiers: Abdominal location: generalized Qualified Code(s): R10.84 - Generalized abdominal pain Comment: Secondary to #2, pain control, OOB/ambulate (4) Marijuana use Code(s): F12.90 - CANNABIS USE, UNSPECIFIED, UNCOMPLICATED Status: Chronic Comment: Cessation resources - Plan plan discussed w/ family, continue antibiotics, social secretary, out of bed/ ambulate, DVT proph w/SCDs Stable currently -: BP remains labile despite titrating medications -: Start Hydralazine 75mg TID -: Increase Metoprolol 100mg BID -: Increase Lisinopril 20mg BID * .
[2018-03-20] MEDS ORDERED: hydrALAZINE 25 MG TAB PO SCH (17:30)
--- NOTE | 2018-03-20 18:44 | PRG ---
DATE OF SERVICE: 03/20/2018 SUBJECTIVE: Gus Hdez is actually feeling well. OBJECTIVE: VITAL SIGNS: Temperature 98.8 degrees, heart rate 88, and respiratory rate 20. ABDOMEN: Soft and nontender. LUNGS: Clear to auscultation. CARDIAC: Regular rate and rhythm without murmur or gallop. EXTREMITIES: Unremarkable. LABORATORY DATA: Laboratories none today. White count was down to 19,000 yesterday. The patient is having bowel movements and passing flatus. His left BRENNON is more serous, 80 mL per 24 hours. His right BRENNON, however, is draining feculent material, recorded 10 mL in the last 24 hours. There is brownish fluid in the bulb. ASSESSMENT AND PLAN: Diverticulitis with BRENNON drain draining stool. Dr. Kimble will keep the patient on full liquids. He is tolerating that. Dr. Kimble will see him in the morning and make decisions regarding care. He continues on Zosyn. Job ID: [id number]
[2018-03-20] MEDS: Pantoprazole 40 MG VIAL IVP SCH (21:17)
[2018-03-20] MEDS: Lisinopril 20 MG TAB PO SCH (21:18)
[2018-03-20] MEDS: hydrALAZINE 25 MG TAB PO SCH (21:18)
[2018-03-20] MEDS: Metoprolol Tartrate 100 MG TAB PO SCH (21:21)
[2018-03-21] MEDS: Piperacillin/Tazobactam 3.375 GM in Sodium Chloride 0.9% 100 ML IVPB SCH ×4 (03:44→20:47)
[2018-03-21 06:39] LABS: ALT (SGPT) 26 U/L (8-55); AST (SGOT) 21 U/L (5-34); Albumin 3.4 g/dL (3.5-5.0); Alkaline Phosphatase 133 U/L (40-150); Anion Gap 15 mmol/L (10-20); BUN (Urea Nitrogen) 10 mg/dL (8.9-20.6); Bilirubin, Total 0.9 mg/dL (0.2-1.2); Calc. Creatinine Clearance 154 mL/min (70-130); Calcium 9.3 mg/dL (7.8-10.44); Carbon Dioxide 20 mmol/L (22-29); Chloride 104 mmol/L (98-107); Estimated GFR-MDRD 90; Globulin 3.5 g/dL (2.4-3.5); Glucose 110 mg/dL (70-105); Protein, Total 6.9 g/dL (6.0-8.3); Sodium 135 mmol/L (136-145)
[2018-03-21 06:46] LABS: Eosinophils 5 % (0-10); Hemoglobin 13.2 g/dL (14.0-18.0); Lymphocytes 14 % (21-51); MDiff Complete? YES; Mean Corpuscular HGB CONC 32.7 g/dL (32.0-36.0); Mean Corpuscular Hemoglobin 29.3 pg (27.0-31.0); Mean Corpuscular Volume 89.6 fL (78.0-98.0); Monocytes 9 % (0-10); Myelocyte 1 % (0-0); Neutrophil 71 % (42-75); Platelet Count 476 thou/uL (130-400); Platelet Morphology Comment Appears Increased; RBC Distribution Width 12.5 % (11.5-14.5)
[2018-03-21] MEDS: hydrALAZINE 25 MG TAB PO SCH ×3 (08:29→20:47)
[2018-03-21] MEDS: Metoprolol Tartrate 100 MG TAB PO SCH ×2 (08:29→20:47)
[2018-03-21] MEDS: Enoxaparin Sodium 40 MG/0.4 ML SYRINGE SC SCH (08:29)
[2018-03-21] MEDS: Lisinopril 20 MG TAB PO SCH ×2 (08:30→20:47)
[2018-03-21] MEDS: Amlodipine 10 MG TAB PO SCH (08:30)
--- NOTE | 2018-03-21 08:33 | PDOC.PN ---
- Subjective Encounter Start Date: 03/21/18 Encounter Start Time: 09:30 Subjective: Patient reports no abdominal pain. No fever. No CP/SOB. - Objective MAR Reviewed: Yes Vital Signs & Weight: Vital Signs (12 hours) Temp Pulse Resp BP BP Pulse Ox 03/21/18 08:30 91 165/105 H 03/21/18 08:29 91 165/105 H 03/21/18 07:33 98.3 F 89 18 165/105 H 97 03/21/18 04:32 98.9 F 86 20 149/84 H 96 03/21/18 00:27 99.0 F 82 20 143/89 H 96 03/20/18 21:18 95 145/93 H 03/20/18 20:45 98.8 F 89 20 145/93 H 97 Weight Weight 270 lb I&O: 03/20/18 03/21/18 03/22/18 06:59 06:59 06:59 Intake Total 1999 1210 660 Output Total 2039 1178 900 Balance -40 32 -240 Result Diagrams: 03/21/18 05:55 03/21/18 05:55 Phys Exam - Physical Examination Constitutional: NAD HEENT: moist MMs Respiratory: no wheezing, no rales, no rhonchi Cardiovascular: RRR, no significant murmur Gastrointestinal: soft, positive bowel sounds surgical dressing in place Neurological: non-focal, moves all 4 limbs Psychiatric: normal affect, A&O x 3 Dx/Plan (1) Peritonitis (acute) generalized Code(s): K65.0 - GENERALIZED (ACUTE) PERITONITIS Status: Acute Comment: s/p laparoscopic washout and abscess drainage POD #5, pain control, continue Zosyn, E. coli from abd cavity is sensitive (2) HTN (hypertension) Code(s): I10 - ESSENTIAL (PRIMARY) HYPERTENSION Status: Chronic Qualifiers: Hypertension type: essential hypertension Qualified Code(s): I10 - Essential (primary) hypertension Comment: Labile, increase Metoprolol 100mg BID, add Norvasc 10mg daily, Hydralazine 20mg IV q4h prn, Clonidine 0.1mg po q4h prn, Add Clonidine patch 0.2mg and increase Lisinopril 20mg BID, start Hydralazine 75mg TID, improving - Plan cont current plan of care, continue antibiotics, out of bed/ambulate, DVT proph w/SCDs General Surgery following * . - Discharge Day Encounter end time: 09:40
--- NOTE | 2018-03-21 13:51 | CT ---
CT ABDOMEN AND PELVIS WITH CONTRAST: HISTORY: Diverticulitis with abscess. Status post washout. Drain placed. COMPARISON: CT 03/16/2018. FINDINGS: Lung bases are clear. No pericardial effusion. The liver, gallbladder, spleen, and pancreas are all unremarkable. The adrenal glands are normal. N o hydronephrosis. There are 2 separate drains, 1 placed within the extraluminal air and fluid collection along the ante rior aspect of the sigmoid colon and the 2nd within the deep pelvis. No significant fluid within the deep pelvis. The extraluminal collection of gas has decreased in size, although air does persist wi thin this collection. Overall, this measures approximately 3.8 cm in greatest transverse dimension, previously 5.5 cm There is a new small collection of fluid extending to a new midline scar which als o contains some foci of gas measuring 5 cm in transverse x 3 cm in AP dimension x approximately 10 cm in craniocaudal dimension. This appears to be extraperitoneal between the parietal peritoneum and l ateral conal fascia. There are some calcifications along the right spermatic cord with what appears to be fluid within the right inguinal canal versus inside the testicle. IMPRESSION: 1. Interval mild size decrease of the extraluminal air and fluid collection along the anterior aspec t of the sigmoid colon, likely a contained perforation. Drain is in good position. 2. Satisfactory placement of the pelvic drain without significant free fluid within the pelvis. 3. New fluid and air contained collection in what appears to be anterior extraperitoneal space with size as above, likely postsurgical in nature. 4. Marked interval improvement of the free intraperitoneal gas. 5. Osseous findings suggesting hyperparathyroidism. Clinical correlation advised. POS: [facility]
[2018-03-21] MEDS ORDERED: Fentanyl 100 MCG/2 ML VIAL ONE (14:06)
[2018-03-21] MEDS ORDERED: Midazolam HCl 2 mg/2 ml Vial ONE (14:06)
[2018-03-21] MEDS ORDERED: Sodium Bicarbonate 2.5 MEQ/5 ML VIAL ONE (14:07)
[2018-03-21 14:21] LABS: INR-International Normal Ratio 1.1; Prothrombin Time 14.4 SEC (12.0-14.7)
[2018-03-21 14:22] LABS: PTT 40.8 SEC (22.9-36.1)
[2018-03-21] MEDS: Morphine 4 MG/ML VIAL SLOW IVP PRN ×2 (15:43→20:55)
[2018-03-21 16:43] LABS: BF Color Yellow; BF RBC Count - Manual 3950 /cumm; BF WBC/Nonhematics Ct. - Manua 2302 /cumm; Body Fluid Source PERITONEAL FLUID; Clarity Hazy (Clear); Tube # EDTA
[2018-03-21] MEDS ORDERED: ISOVUE-370 76%-LOCM 1 ML ONE (16:53)
--- NOTE | 2018-03-21 16:58 | PDOC.GSPN ---
Surgery Progress Note: Subj - Subjective Narrative: Patient feels good. He denies any fevers nausea or abdominal pain. He has been tolerating full liquids. 2 days ago, the drainage from his right BRENNON developed a feculent nature. He states however that yesterday the drainage became clear again. There has been minimal drainage yesterday and today and the drainage is still serous. He does occasionally have subjective chills. Abdomen is soft and nondistended. Dilia were removed and there was no odor or expressible drainage from the wound. JPs are both serous and there is minimal output from either one. Assessment/plan: Status post drainage of diverticular abscess and washout for purulent peritonitis. Patient feels much better. His white count is still in the 20,000's and actually went up today. I was concerned that he has an ongoing leak or has developed new abscess. I ordered a CT scan to evaluate this and the patient was found to have an anterior fluid collection consistent with an abscess which the radiologist felt was percutaneously accessible. I asked radiology to place a percutaneous drain. We will see how he does. There was no undrained abscess around the sigmoid colon although the sigmoid colon still appears inflamed. The tip of the right BRENNON is in an air pocket next to the sigmoid which I believe is the fibrotic abscess cavity which is likely too thick walled to collapse. This is smaller than before however. Surgery Progress Note: Obj - Vital signs Vital signs: Vital Signs - Most Recent Temp Pulse Resp BP Pulse Ox 98.4 F 88 18 150/96 H 98 03/21/18 15:50 03/21/18 15:50 03/21/18 15:50 03/21/18 15:50 03/21/18 15:50 Surgery Progress Note: Results - Labs Result Diagrams: 03/21/18 05:55 03/21/18 05:55 Lab results: Laboratory Results - last 24 hr 03/21/18 03/21/18 03/21/18 05:55 05:55 14:00 WBC 27.0 H RBC 4.50 L Hgb 13.2 L Hct 40.3 L MCV 89.6 MCH 29.3 MCHC 32.7 RDW 12.5 Plt Count 476 H MPV 7.0 L Neutrophils % (Manual) 71 Lymphocytes % (Manual) 14 L Monocytes % (Manual) 9 Eosinophils % (Manual) 5 Myelocytes % 1 H Plt Morphology Comment Appears Increased H PT 14.4 INR 1.1 APTT 40.8 H Sodium 135 L Potassium 4.0 Chloride 104 Carbon Dioxide 20 L Anion Gap 15 BUN 10 Creatinine 1.09 Estimated GFR (MDRD) 90 Glucose 110 H Calcium 9.3 Total Bilirubin 0.9 AST 21 ALT 26 Alkaline Phosphatase 133 Serum Total Protein 6.9 Albumin 3.4 L Globulin 3.5 Albumin/Globulin Ratio 1.0 L Fluid Source Fluid Tube Number Fluid Color Fluid Clarity Fluid WBC (Manual) Fluid RBC (Manual) Fluid Comment 03/21/18 15:05 WBC RBC Hgb Hct MCV MCH MCHC RDW Plt Count MPV Neutrophils % (Manual) Lymphocytes % (Manual) Monocytes % (Manual) Eosinophils % (Manual) Myelocytes % Plt Morphology Comment PT INR APTT Sodium Potassium Chloride Carbon Dioxide Anion Gap BUN Creatinine Estimated GFR (MDRD) Glucose Calcium Total Bilirubin AST ALT Alkaline Phosphatase Serum Total Protein Albumin Globulin Albumin/Globulin Ratio Fluid Source PERITONEAL FLUID Fluid Tube Number EDTA Fluid Color Yellow Fluid Clarity Hazy H Fluid WBC (Manual) 2302 Fluid RBC (Manual) 3950 Fluid Comment Note:
[2018-03-21 17:23] LABS: BF Segmented Neutrophils 83 %; Cell Count Non Hematic 5 %; Lymphocytes 12 %
--- NOTE | 2018-03-21 18:09 | CT ---
CT GUIDED INTRAPERITONEAL ABSCESS DRAINAGE: History: Anterior abdominal fluid collection. Technique: Informed consent was obtained from the patient. The left anterior abdominal wall collection was local ized using CT guidance. The overlying skin was prepped and draped in the usual sterile manner. A 1% L idocaine solution was used to anesthetize overlying soft tissues. Using a Yueh needle, the intraperit carlton collection was accessed. A 035 Amplax wire was introduced. This was followed by an 8 Scottish dil ator. The dilator was then removed and an 8 Scottish all-purpose drainage catheter was placed into the peritoneal collection. IMPRESSION: Successful CT guided left intraperitoneal fluid collection drainage. POS: JAVIER
[2018-03-21] MEDS: Pantoprazole 40 MG VIAL IVP SCH (20:47)
[2018-03-22] MEDS: Piperacillin/Tazobactam 3.375 GM in Sodium Chloride 0.9% 100 ML IVPB SCH ×4 (02:16→20:08)
[2018-03-22 06:59] LABS: ALT (SGPT) 22 U/L (8-55); AST (SGOT) 16 U/L (5-34); Albumin 3.5 g/dL (3.5-5.0); Alkaline Phosphatase 129 U/L (40-150); Anion Gap 13 mmol/L (10-20); BUN (Urea Nitrogen) 8 mg/dL (8.9-20.6); Bilirubin, Total 0.6 mg/dL (0.2-1.2); Calc. Creatinine Clearance 159 mL/min (70-130); Calcium 9.3 mg/dL (7.8-10.44); Carbon Dioxide 22 mmol/L (22-29); Chloride 103 mmol/L (98-107); Estimated GFR-MDRD Greater than 90; Globulin 3.5 g/dL (2.4-3.5); Glucose 129 mg/dL (70-105); Phosphorus 3.6 mg/dL (2.3-4.7); Potassium 4.1 mmol/L (3.5-5.1); Sodium 134 mmol/L (136-145)
[2018-03-22 07:25] LABS: Band 1 % (5-11); Eosinophils 4 % (0-10); Hemoglobin 12.9 g/dL (14.0-18.0); Lymphocytes 13 % (21-51); MDiff Complete? YES; Mean Corpuscular HGB CONC 32.8 g/dL (32.0-36.0); Mean Corpuscular Hemoglobin 29.3 pg (27.0-31.0); Mean Corpuscular Volume 89.3 fL (78.0-98.0); Mean Platelet Volume 6.7 fL (7.4-10.4); Metamyelocyte 3 % (0-0); Monocytes 5 % (0-10); Neutrophil 72 % (42-75); Platelet Count 464 thou/uL (130-400); Platelet Morphology Comment Appears Increased; RBC Distribution Width 12.5 % (11.5-14.5); RBC Morphology Normal; Reactive Lymphocytes 2 % (0-10); Red Blood Cell (RBC) Count 4.41 mill/uL (4.70-6.10); White Blood Cell (WBC) Count 24.9 thou/uL (4.8-10.8)
[2018-03-22] MEDS: hydrALAZINE 25 MG TAB PO SCH ×3 (07:57→20:06)
[2018-03-22] MEDS: Enoxaparin Sodium 40 MG/0.4 ML SYRINGE SC SCH (07:57)
[2018-03-22] MEDS: Lisinopril 20 MG TAB PO SCH ×2 (07:58→20:06)
[2018-03-22] MEDS: Morphine 4 MG/ML VIAL SLOW IVP PRN ×2 (07:58→20:07)
[2018-03-22] MEDS: Metoprolol Tartrate 100 MG TAB PO SCH ×2 (07:58→20:07)
--- NOTE | 2018-03-22 07:58 | PDOC.PN ---
- Subjective Encounter Start Date: 03/22/18 Encounter Start Time: 15:30 Subjective: Patient reports some abdominal soreness in suprapubic area. No fever. No -: nausea or vomiting. Had another drain placed yesterday. - Objective MAR Reviewed: Yes Vital Signs & Weight: Vital Signs (12 hours) Temp Pulse Resp BP BP Pulse Ox 03/22/18 03:22 98.9 F 75 16 142/92 H 96 03/21/18 20:47 88 134/82 03/21/18 20:15 96 03/21/18 20:00 98.5 F 95 16 134/82 96 Weight Weight 270 lb I&O: 03/21/18 03/22/18 03/23/18 06:59 06:59 06:59 Intake Total 1210 660 Output Total 1178 3773 Balance 32 -3113 Result Diagrams: 03/22/18 06:22 03/22/18 06:22 Phys Exam - Physical Examination Constitutional: NAD HEENT: moist MMs Respiratory: no wheezing, no rales, no rhonchi Cardiovascular: RRR, no significant murmur Gastrointestinal: soft, positive bowel sounds TTP suprapubic, now with [address] Neurological: non-focal, moves all 4 limbs Psychiatric: normal affect, A&O x 3 Dx/Plan (1) Peritonitis (acute) generalized Code(s): K65.0 - GENERALIZED (ACUTE) PERITONITIS Status: Acute Comment: s/p laparoscopic washout and abscess drainage POD #5, pain control, continue Zosyn, E. coli from abd cavity is sensitive, repeat abscess drain placement to new anterior fluid pocket on 03/21/18. (2) HTN (hypertension) Code(s): I10 - ESSENTIAL (PRIMARY) HYPERTENSION Status: Chronic Qualifiers: Hypertension type: essential hypertension Qualified Code(s): I10 - Essential (primary) hypertension Comment: Labile, increase Metoprolol 100mg BID, add Norvasc 10mg daily, Hydralazine 20mg IV q4h prn, Clonidine 0.1mg po q4h prn, Add Clonidine patch 0.2mg and increase Lisinopril 20mg BID, start Hydralazine 75mg TID. Well controlled now. - Plan cont current plan of care, continue antibiotics, out of bed/ambulate, DVT proph w/lovenox, DVT proph w/SCDs * . - Discharge Day Encounter end time: 15:50
[2018-03-22] MEDS: Amlodipine 10 MG TAB PO SCH (09:02)
[2018-03-22] MEDS: metroNIDAZOLE 500 MG in Premix Bag 1 BAG IVPB SCH ×2 (12:33→18:16)
--- NOTE | 2018-03-22 14:31 | PDOC.GSPN ---
Surgery Progress Note: Subj - Subjective Narrative: Patient feels well with no complaints. He is a little sore where he had the drainage procedure yesterday. He denies any abdominal pain and bloating or nausea and has been tolerating a full liquid diet. He has been having bowel movements although these are still loose. No fevers or chills. White count is still elevated but down somewhat from yesterday. PTH levels are normal as are his calcium and phosphorus levels. Abdominal exam is benign and there is clear serous drainage from the left BRENNON and slightly cloudy but straw-colored fluid from the right BRENNON. The fluid from the percutaneous drain appears to be mostly irrigation fluid. The wound is clean without expressible drainage or erythema. We will continue with conservative management with drains and antibiotics. I am going to advance his diet. Since his white count still hasn't come down I am going to add some Flagyl empirically for added anaerobic coverage. Surgery Progress Note: Obj - Vital signs Vital signs: Vital Signs - Most Recent Temp Pulse Resp BP Pulse Ox 98.4 F 76 20 145/95 H 97 03/22/18 12:20 03/22/18 12:20 03/22/18 12:20 03/22/18 12:20 03/22/18 12:20 Surgery Progress Note: Results - Labs Result Diagrams: 03/22/18 06:22 03/22/18 06:22 Lab results: Laboratory Results - last 24 hr 03/21/18 03/22/18 03/22/18 15:05 06:22 06:22 WBC RBC Hgb Hct MCV MCH MCHC RDW Plt Count MPV Neutrophils % (Manual) Band Neuts % (Manual) Lymphocytes % (Manual) Reactive Lymphs % Monocytes % (Manual) Eosinophils % (Manual) Metamyelocytes % (Man) Plt Morphology Comment RBC Morph Comment Sodium 134 L Potassium 4.1 Chloride 103 Carbon Dioxide 22 Anion Gap 13 BUN 8 L Creatinine 1.06 Estimated GFR (MDRD) Greater than 90 Glucose 129 H Calcium 9.3 Phosphorus 3.6 Total Bilirubin 0.6 AST 16 ALT 22 Alkaline Phosphatase 129 Serum Total Protein 7.0 Albumin 3.5 Globulin 3.5 Albumin/Globulin Ratio 1.0 L PTH Intact 50.0 Fluid Diff Path Review 03/22/18 06:22 WBC 24.9 H RBC 4.41 L Hgb 12.9 L Hct 39.4 L MCV 89.3 MCH 29.3 MCHC 32.8 RDW 12.5 Plt Count 464 H MPV 6.7 L Neutrophils % (Manual) 72 Band Neuts % (Manual) 1 L Lymphocytes % (Manual) 13 L Reactive Lymphs % 2 Monocytes % (Manual) 5 Eosinophils % (Manual) 4 Metamyelocytes % (Man) 3 H Plt Morphology Comment Appears Increased H RBC Morph Comment Normal Sodium Potassium Chloride Carbon Dioxide Anion Gap BUN Creatinine Estimated GFR (MDRD) Glucose Calcium Phosphorus Total Bilirubin AST ALT Alkaline Phosphatase Serum Total Protein Albumin Globulin Albumin/Globulin Ratio PTH Intact Fluid Diff Path Review
[2018-03-22] MEDS: Pantoprazole 40 MG VIAL IVP SCH (20:06)
[2018-03-23] MEDS: metroNIDAZOLE 500 MG in Premix Bag 1 BAG IVPB SCH ×4 (00:21→17:45)
[2018-03-23] MEDS: Piperacillin/Tazobactam 3.375 GM in Sodium Chloride 0.9% 100 ML IVPB SCH ×4 (03:24→20:40)
[2018-03-23] MEDS: Lisinopril 20 MG TAB PO SCH ×2 (08:20→20:40)
[2018-03-23] MEDS: Metoprolol Tartrate 100 MG TAB PO SCH ×2 (08:20→20:40)
[2018-03-23] MEDS: Amlodipine 10 MG TAB PO SCH (08:21)
[2018-03-23] MEDS: Enoxaparin Sodium 40 MG/0.4 ML SYRINGE SC SCH (08:21)
[2018-03-23] MEDS: hydrALAZINE 25 MG TAB PO SCH ×3 (08:21→20:39)
--- NOTE | 2018-03-23 08:30 | PDOC.PN ---
- Subjective Encounter Start Date: 03/23/18 Encounter Start Time: 10:20 Subjective: Abdomen just a little sore. No fever. No other complaints. - Objective MAR Reviewed: Yes Vital Signs & Weight: Vital Signs (12 hours) Temp Pulse Resp BP BP BP Pulse Ox 03/23/18 08:21 76 131/84 03/23/18 08:20 132/84 03/23/18 07:29 98 F 76 22 H 131/84 98 03/23/18 03:25 97.9 F 72 26 H 125/78 97 03/23/18 00:26 98.3 F 70 16 127/79 97 Weight Weight 270 lb I&O: 03/22/18 03/23/18 03/24/18 06:59 06:59 06:59 Intake Total 660 1400 Output Total 3773 1036 1800 Balance -3113 -1036 -400 Result Diagrams: 03/22/18 06:22 03/22/18 06:22 Phys Exam - Physical Examination Constitutional: NAD HEENT: moist MMs Respiratory: no wheezing, no rales, no rhonchi Cardiovascular: RRR, no significant murmur Gastrointestinal: soft, positive bowel sounds mild TTP Suprapubically Musculoskeletal: no edema Neurological: non-focal, moves all 4 limbs Psychiatric: normal affect, A&O x 3 Dx/Plan (1) Peritonitis (acute) generalized Code(s): K65.0 - GENERALIZED (ACUTE) PERITONITIS Status: Acute Comment: s/p laparoscopic washout and abscess drainage POD #5, pain control, continue Zosyn, E. coli from abd cavity is sensitive, repeat abscess drain placement to new anterior fluid pocket on 03/21/18. (2) HTN (hypertension) Code(s): I10 - ESSENTIAL (PRIMARY) HYPERTENSION Status: Chronic Qualifiers: Hypertension type: essential hypertension Qualified Code(s): I10 - Essential (primary) hypertension Comment: Labile, increase Metoprolol 100mg BID, add Norvasc 10mg daily, Hydralazine 20mg IV q4h prn, Clonidine 0.1mg po q4h prn, Add Clonidine patch 0.2mg and increase Lisinopril 20mg BID, start Hydralazine 75mg TID. Well controlled now. (3) Marijuana use Code(s): F12.90 - CANNABIS USE, UNSPECIFIED, UNCOMPLICATED Status: Chronic Comment: Cessation resources - Plan cont current plan of care, continue antibiotics, DVT proph w/lovenox, DVT proph w/SCDs * . - Discharge Day Encounter end time: 10:30
[2018-03-23] MEDS: Morphine 4 MG/ML VIAL SLOW IVP PRN ×3 (14:16→22:37)
--- NOTE | 2018-03-23 17:12 | PDOC.GSPN ---
Surgery Progress Note: Subj - Subjective Narrative: Patient feels good but unfortunately has feculent drainage from his right BRENNON again consistent with recurrent leak. He is not febrile and is not having any pain. He has been tolerating his diet and having bowel movements. Assessment/plan: Since the patient has leaked again I have recommended laparoscopic hand-assisted sigmoid colectomy. He will almost certainly require either a primary colostomy or a protective ileostomy, although primary anastomosis without a protective diverting ileostomy could be considered if the distal and proximal small bowel are completely normal and there is no evidence of residual infection. Inherent risks of surgery include but are not limited to bleeding, infection, risks of anesthesia, damage to nearby structures including bowel, blood vessels and ureter, and need for other surgery. If he requires a colostomy or ileostomy, then takedown at a later date will be necessary. The patient is understandably disappointed by this turn of events but understands the recommendation and wants to proceed. Bowel prep has been ordered and he has been posted for the operating room tomorrow. Surgery Progress Note: Obj - Vital signs Vital signs: Vital Signs - Most Recent Temp Pulse Resp BP Pulse Ox 98.8 F 78 20 141/98 H 97 03/23/18 15:12 03/23/18 15:12 03/23/18 15:12 03/23/18 15:12 03/23/18 15:12 Surgery Progress Note: Results - Labs Result Diagrams: 03/22/18 06:22 03/22/18 06:22
[2018-03-23] MEDS: Erythromycin Base 250 MG TAB PO SCH ×2 (17:52→23:13)
[2018-03-23] MEDS: Neomycin 500 mg Tablet PO SCH ×2 (17:53→23:13)
[2018-03-23] MEDS ORDERED: GoLYTELY 4,000 ml Bottle PO SCH (18:00)
[2018-03-23] MEDS: Pantoprazole 40 MG VIAL IVP SCH (20:40)
[2018-03-24] MEDS: metroNIDAZOLE 500 MG in Premix Bag 1 BAG IVPB SCH ×5 (00:05→23:55)
[2018-03-24] MEDS: Piperacillin/Tazobactam 3.375 GM in Sodium Chloride 0.9% 100 ML IVPB SCH ×4 (03:33→21:13)
[2018-03-24 06:35] LABS: Mean Corpuscular HGB CONC 33.5 g/dL (32.0-36.0); Mean Corpuscular Hemoglobin 30.1 pg (27.0-31.0); Mean Corpuscular Volume 89.6 fL (78.0-98.0); Mean Platelet Volume 7.2 fL (7.4-10.4); Platelet Count 503 thou/uL (130-400); RBC Distribution Width 12.6 % (11.5-14.5); Red Blood Cell (RBC) Count 4.33 mill/uL (4.70-6.10); White Blood Cell (WBC) Count 20.2 thou/uL (4.8-10.8)
[2018-03-24] MEDS: Metoprolol Tartrate 100 MG TAB PO SCH ×2 (06:41→21:14)
[2018-03-24 07:09] LABS: Anion Gap 14 mmol/L (10-20); BUN (Urea Nitrogen) 12 mg/dL (8.9-20.6); Calc. Creatinine Clearance 156 mL/min (70-130); Calcium 9.2 mg/dL (7.8-10.44); Carbon Dioxide 22 mmol/L (22-29); Chloride 103 mmol/L (98-107); Estimated GFR-MDRD Greater than 90; Glucose 92 mg/dL (70-105); Sodium 135 mmol/L (136-145)
[2018-03-24 07:23] LABS: Band 1 % (5-11); Eosinophils 1 % (0-10); Lymphocytes 12 % (21-51); MDiff Complete? YES; Metamyelocyte 1 % (0-0); Monocytes 3 % (0-10); Myelocyte 1 % (0-0); Neutrophil 74 % (42-75); Platelet Morphology Comment Appears Increased; RBC Morphology Normal; Reactive Lymphocytes 6 % (0-10)
[2018-03-24] MEDS ORDERED: Fentanyl 100 MCG/2 ML VIAL ONE (08:30)
[2018-03-24] MEDS ORDERED: Dexamethasone 4 mg/ml Vial ONE (08:30)
[2018-03-24] MEDS ORDERED: Midazolam HCl 2 mg/2 ml Vial ONE (08:30)
--- NOTE | 2018-03-24 08:30 | PDOC.PN ---
- Subjective Encounter Start Date: 03/24/18 Encounter Start Time: 15:00 Subjective: Patient in surgery all day. - Objective MAR Reviewed: Yes Vital Signs & Weight: Vital Signs (12 hours) Temp Pulse Resp BP BP BP Pulse Ox 03/24/18 08:00 98.2 F 77 14 143/94 H 95 03/24/18 03:33 98.9 F 81 20 139/91 H 95 03/24/18 00:00 98.1 F 72 18 133/84 98 03/23/18 20:40 153/98 H 03/23/18 20:39 86 153/98 H 03/23/18 20:30 98.8 F 86 18 153/98 H 95 Weight Weight 270 lb I&O: 03/23/18 03/24/18 03/25/18 06:59 06:59 06:59 Intake Total 7750 Output Total 1036 4220 Balance -1036 3530 Result Diagrams: 03/28/18 06:35 03/28/18 06:35 Dx/Plan (1) Diverticular disease of intestine with perforation and abscess Code(s): K57.80 - DVTRCLI OF INTEST, PART UNSP, W PERF AND ABSCESS W/O BLEED Status: Acute Comment: Persistent feculent leak from drains, taken to surgery today for sigmoidectomy (2) Peritonitis (acute) generalized Code(s): K65.0 - GENERALIZED (ACUTE) PERITONITIS Status: Acute Comment: s/p laparoscopic washout and abscess drainage POD #5, pain control, continue Zosyn, E. coli from abd cavity is sensitive, repeat abscess drain placement to new anterior fluid pocket on 03/21/18. (3) HTN (hypertension) Code(s): I10 - ESSENTIAL (PRIMARY) HYPERTENSION Status: Chronic Qualifiers: Hypertension type: essential hypertension Qualified Code(s): I10 - Essential (primary) hypertension Comment: Labile, increase Metoprolol 100mg BID, add Norvasc 10mg daily, Hydralazine 20mg IV q4h prn, Clonidine 0.1mg po q4h prn, Add Clonidine patch 0.2mg and increase Lisinopril 20mg BID, start Hydralazine 75mg TID. Well controlled now. (4) Marijuana use Code(s): F12.90 - CANNABIS USE, UNSPECIFIED, UNCOMPLICATED Status: Chronic Comment: Cessation resources - Plan cont current plan of care, continue antibiotics, DVT proph w/SCDs in surgery today * .
[2018-03-24] MEDS ORDERED: Fentanyl 250 MCG/5 ML VIAL ONE (09:52)
[2018-03-24] MEDS ORDERED: Bupivacaine HCl 0.25%/Epi 0.0005/PF 10 ML VIAL FS ONE (09:56)
[2018-03-24] MEDS: Lisinopril 20 MG TAB PO SCH ×2 (10:20→21:14)
[2018-03-24] MEDS: hydrALAZINE 25 MG TAB PO SCH ×3 (10:20→21:14)
[2018-03-24] MEDS: Amlodipine 10 MG TAB PO SCH (10:20)
[2018-03-24] MEDS: Enoxaparin Sodium 40 MG/0.4 ML SYRINGE SC SCH (10:20)
[2018-03-24] MEDS ORDERED: metroNIDAZOLE 500 MG/100 ML BAG ONE (11:59)
[2018-03-24] MEDS ORDERED: Piperacillin/Tazobactam 3.375 GM VIAL ONE (14:44)
[2018-03-24] MEDS ORDERED: PHENYLEPHRINE-NS 100 MCG/ML 10 ML SYRINGE ONE ×2 (15:38→16:07)
[2018-03-24] MEDS ORDERED: Vecuronium 10 MG VIAL ONE (16:07)
[2018-03-24] MEDS ORDERED: Dexamethasone 20 MG/5 ML VIAL ONE (16:07)
[2018-03-24] MEDS ORDERED: Rocuronium Bromide 10 MG/ML (10ML VIAL) ONE (16:07)
[2018-03-24] MEDS ORDERED: Lidocaine 1% PF 5 ML VIAL ONE (16:07)
[2018-03-24] MEDS ORDERED: Succinylcholine Chloride 20 MG/ML 10 ml SYRINGE FS ONE (16:07)
[2018-03-24] MEDS ORDERED: PROPOFOL 200 MG/20 ML VIAL ONE (16:07)
[2018-03-24] MEDS ORDERED: Glycopyrrolate 0.2 MG/ML 5 ML SYRINGE ONE (16:07)
[2018-03-24] MEDS ORDERED: Ondansetron PF 4 MG/2 ML Vial ONE (16:07)
[2018-03-24] MEDS: Morphine 4 MG/ML VIAL SLOW IVP PRN ×3 (18:15→22:45)
[2018-03-24] MEDS: Acetaminophen 1,000 MG in Premix Bag 1 BAG IVPB SCH ×2 (18:17→23:55)
[2018-03-24] MEDS: Pantoprazole 40 MG VIAL IVP SCH (21:15)
[2018-03-25] MEDS: Morphine 4 MG/ML VIAL SLOW IVP PRN ×8 (01:17→22:48)
[2018-03-25] MEDS: Piperacillin/Tazobactam 3.375 GM in Sodium Chloride 0.9% 100 ML IVPB SCH ×4 (03:52→22:11)
[2018-03-25] MEDS: Acetaminophen 1,000 MG in Premix Bag 1 BAG IVPB SCH ×3 (05:50→17:32)
[2018-03-25] MEDS: metroNIDAZOLE 500 MG in Premix Bag 1 BAG IVPB SCH ×4 (05:50→22:48)
[2018-03-25] MEDS: Enoxaparin Sodium 40 MG/0.4 ML SYRINGE SC SCH (09:23)
[2018-03-25] MEDS: Metoprolol Tartrate 100 MG TAB PO SCH ×2 (09:23→22:10)
[2018-03-25] MEDS: hydrALAZINE 25 MG TAB PO SCH ×3 (09:24→22:10)
[2018-03-25] MEDS: Lisinopril 20 MG TAB PO SCH ×2 (09:24→22:10)
[2018-03-25] MEDS: Amlodipine 10 MG TAB PO SCH (09:24)
--- NOTE | 2018-03-25 14:50 | PDOC.PN ---
- Subjective Encounter Start Date: 03/25/18 Encounter Start Time: 14:48 Subjective: seen and examined with no new complaint - Objective Vital Signs & Weight: Vital Signs (12 hours) Temp Pulse Resp BP BP BP Pulse Ox 03/25/18 14:13 72 137/92 H 03/25/18 12:00 98.5 F 72 18 137/92 H 94 L 03/25/18 09:24 86 115/74 03/25/18 08:10 98.2 F 76 15 128/82 95 03/25/18 04:00 98.9 F 86 20 123/81 94 L Weight Admit Weight 270 lb Weight 270 lb I&O: 03/24/18 03/25/18 03/26/18 06:59 06:59 06:59 Intake Total 7750 1100 Output Total 4220 2745 Balance 3530 -4635 Result Diagrams: 03/24/18 05:03 03/24/18 05:03 Additional Labs: Accuchecks 03/24/18 16:33 POC Glucose 137 H Phys Exam - Physical Examination Constitutional: NAD HEENT: PERRLA, moist MMs, sclera anicteric, TM's clear, oral pharynx no lesions Neck: no nodes, no JVD, supple, full ROM Respiratory: no wheezing, no rales, no rhonchi, clear to auscultation bilateral Cardiovascular: no significant murmur, no rub Gastrointestinal: no distention, positive bowel sounds Musculoskeletal: no edema, pulses present Dx/Plan (1) Diverticular disease of intestine with perforation and abscess Code(s): K57.80 - DVTRCLI OF INTEST, PART UNSP, W PERF AND ABSCESS W/O BLEED Status: Acute Comment: Persistent feculent leak from drains, taken to surgery today for sigmoidectomy (2) Abdominal pain Code(s): R10.9 - UNSPECIFIED ABDOMINAL PAIN Status: Acute Qualifiers: Abdominal location: generalized Qualified Code(s): R10.84 - Generalized abdominal pain Comment: Secondary to #2, pain control, OOB/ambulate (3) Peritonitis (acute) generalized Code(s): K65.0 - GENERALIZED (ACUTE) PERITONITIS Status: Acute Comment: s/p laparoscopic washout and abscess drainage POD #5, pain control, continue Zosyn, E. coli from abd cavity is sensitive, repeat abscess drain placement to new anterior fluid pocket on 1/21/19. (4) HTN (hypertension) Code(s): I10 - ESSENTIAL (PRIMARY) HYPERTENSION Status: Chronic Qualifiers: Hypertension type: essential hypertension Qualified Code(s): I10 - Essential (primary) hypertension Comment: Labile, increase Metoprolol 100mg BID, add Norvasc 10mg daily, Hydralazine 20mg IV q4h prn, Clonidine 0.1mg po q4h prn, Add Clonidine patch 0.2mg and increase Lisinopril 20mg BID, start Hydralazine 75mg TID. Well controlled now. (5) Marijuana use Code(s): F12.90 - CANNABIS USE, UNSPECIFIED, UNCOMPLICATED Status: Chronic Comment: Cessation resources - Plan continue antibiotics, social service director Surgery yesterday due to peritonitis/perforation * .
--- NOTE | 2018-03-25 21:50 | PDOC.GSPN ---
Surgery Progress Note: Subj - Subjective Narrative: Patient states that he feels bloated and "tight". He has not yet passed any gas. He is tolerating clears without nausea. Abdomen is moderately distended and tympanitic in bowel sounds although present are somewhat high-pitched. BRENNON drainage is serosanguineous. Colostomy is edematous but healthy. Urine output has been brisk. Fluids are currently have loss. Assessment/plan: Patient is status post left colectomy for perforated sigmoid diverticulitis with unexpected mass in his descending colon. Awaiting return of bowel function. He has an anticipated multifactorial ileus. Surgery Progress Note: Obj - Vital signs Vital signs: Vital Signs - Most Recent Temp Pulse Resp BP Pulse Ox 99 F 80 16 138/94 H 94 L 03/25/18 20:00 03/25/18 20:00 03/25/18 20:00 03/25/18 20:00 03/25/18 20:00 Surgery Progress Note: Results - Labs Result Diagrams: 03/24/18 05:03 03/24/18 05:03
[2018-03-25] MEDS: Pantoprazole 40 MG VIAL IVP SCH (22:10)
[2018-03-26] MEDS: Morphine 4 MG/ML VIAL SLOW IVP PRN ×7 (00:47→22:45)
[2018-03-26] MEDS: Piperacillin/Tazobactam 3.375 GM in Sodium Chloride 0.9% 100 ML IVPB SCH ×4 (03:28→20:06)
[2018-03-26 06:03] LABS: #Basophils 0.1 thou/uL (0.0-0.2); #Eosinphils 0.1 thou/uL (0.0-0.7); #Lymphocytes 1.9 thou/uL (1.20-3.40); #Monocytes 1.3 thou/uL (0.11-0.59); #Neutrophils 23.3 thou/uL (1.40-6.50); %Basophils 0.2 % (0.0-1.0); %Eosinophils 0.5 % (0.0-10.0); %Neutrophils 87.2 % (42.0-75.0); Hemoglobin 13.3 g/dL (14.0-18.0); Mean Corpuscular HGB CONC 32.4 g/dL (32.0-36.0); Mean Corpuscular Hemoglobin 29.1 pg (27.0-31.0); Mean Platelet Volume 7.1 fL (7.4-10.4); Platelet Count 617 thou/uL (130-400); RBC Distribution Width 12.8 % (11.5-14.5); Red Blood Cell (RBC) Count 4.55 mill/uL (4.70-6.10); White Blood Cell (WBC) Count 26.7 thou/uL (4.8-10.8)
[2018-03-26] MEDS: metroNIDAZOLE 500 MG in Premix Bag 1 BAG IVPB SCH ×3 (06:04→18:53)
[2018-03-26 06:25] LABS: Anion Gap 14 mmol/L (10-20); BUN (Urea Nitrogen) 14 mg/dL (8.9-20.6); Calc. Creatinine Clearance 145 mL/min (70-130); Calcium 9.3 mg/dL (7.8-10.44); Carbon Dioxide 23 mmol/L (22-29); Chloride 103 mmol/L (98-107); Estimated GFR-MDRD 84; Glucose 144 mg/dL (70-105); Potassium 4.2 mmol/L (3.5-5.1); Sodium 136 mmol/L (136-145)
[2018-03-26] MEDS: cloNIDine 0.1 MG TAB PO PRN (06:33)
--- NOTE | 2018-03-26 07:29 | PDOC.OP ---
Operative Note - Operative Note Operative Note: PROCEDURE: Laparoscopic hand-assisted left colectomy with transverse colostomy DATE OF PROCEDURE: 03/24/2018 SURGEON: Chavez Kimble M.D. PREOPERATIVE DIAGNOSES: Perforated sigmoid diverticulitis POSTOPERATIVE DIAGNOSIS: Perforated sigmoid diverticulitis with additional left colonic mass HISTORY: Patient presented with free air and free fluid and underwent laparoscopic and assisted washout of purulent peritonitis and drainage of a diverticular abscess. He recovered well postoperatively but developed feculent drainage from the abscess cavity and recommendation was made to proceed back to the operating room for sigmoid resection. He underwent a bowel preparation preoperatively with plans to perform a primary anastomosis with proximal diversion. PROCEDURE IN DETAIL: After informed consent was obtained and appropriate preoperative antibiotics continued the patient was taken to the operating room where he was placed in supine position and general endotracheal anesthesia was administered. A Santana catheter was placed decompress the bladder and an OG tube was placed to decompress the stomach. The previously placed BRENNON drains and percutaneous drains were removed. He was then placed in lithotomy position and prepped and draped in standard sterile fashion, including a perineal prep. The previous periumbilical incision was reopened and the underlying subcutaneous tissues prepped with Betadine. Gloves were changed and the fascia opened. Filmy acute adhesions were taken down between the anterior abdominal wall and the underlying tissues and GelPort was placed and carbon dioxide gas insufflated to an intra-abdominal pressure of 15 which the patient tolerated well. The camera was placed at the epigastric site under direct vision and 5 mm trochars placed at the previous BRENNON sites under direct laparoscopic vision. Some rather dense adhesions between the small intestine and the sigmoid colon were taken down bluntly using digital dissection. The previously drained abscess cavity was identified and no active leakage seen. The tissues were too inflamed and thickened to obtain any sort of closure of this area. The omentum was very densely adherent to the underlying sigmoid colon the plane was able to be developed between the omentum and the descending colon and the distal omentum was transected with LigaSure leaving it in place over the sigmoid colon. The white line of Toldt was incised and the sigmoid colon rotated medially. The gonadal vessels and ureter were clearly identified. The ureter was confirmed to peristalse and was avoided for the remainder of the case. The upper rectum was soft and normal to palpation the mesenteric fat surrounding the rectum was divided with LigaSure and a window created posteriorly. The 5 mm port on the right side was replaced with a 12 mm port and a laparoscopic stapler placed across the rectum, which was divided. Attention was then turned to mobilization of the left colon. Dissection was carried out toward the splenic flexure, and as the left colon was mobilized, a thickened abnormal segment was encountered. This also had omentum adherent to it and these adhesions appeared chronic. There was no evidence of proximal obstruction but the area did have a masslike appearance. A window was created medial to this area and the omentum divided leaving it adherent to the underlying colon. The splenic flexure was then completely mobilized detaching the distal transverse colon from the omentum and the retroperitoneal attachments and completely mobilizing the distal transverse colon. This was done with difficulty due to the patient's obesity and due to some abnormal attachments to the left colon in the retroperitoneum. The left colon was eventually able to be mobilized up medially and brought out through the wound protector and carefully examined. This continued to have a masslike appearance, although was felt that the mass could be inflammatory rather than malignant. There was no evidence of acute infection however, nor did the patient 's have any history of known infection in this area in the past. The decision was made to resect the entire left colon down to the mesenteric base due to the possibility of neoplasm. Dissection was carried down to the base of the inferior mesenteric artery, again identifying and avoiding the ureter during this process. The inferior mesenteric vessels were individually transected using LigaSure and the remainder of the mesentery divided up to the distal transverse colon which was then divided using the laparoscopic stapler. The specimen was drawn out through the wound protector and marked with a long distal suture. The abdomen was then copiously irrigated with 4 L of warm saline. The entire small intestine was run. There were indurated areas were previous adhesions had formed to the sigmoid colon, and some chronic nonobstructing adhesions, but no other abnormalities. There were no other palpable masses in the right or transverse colon. Due to the possibility of malignancy in the left colon and the inability to evaluate the remaining colon preoperatively, the decision was made to create an end colostomy rather than creating a colorectal anastomosis which might need to be taken down if any additional disease was found. A circular incision was made over the rectus sheath in the right upper abdomen and dissection carried down to the anterior rectus sheath which was incised in a cruciate manner. The underlying rectus muscles were split and the posterior sheath also incised in a cruciate manner. The tract was dilated and the colon drawn out through the defect and confirmed to be in good orientation without twisting of the mesentery. This was secured to the anterior rectus sheath circumferentially with 3-0 Vicryl sutures. The GelPort was then replaced and the 10 mm trocar in the right abdomen removed and the fascial defects closed with a 0 Vicryl suture on a GraNee needle with excellent technical result. The BRENNON was placed through the left-sided 5 mm trocar and the and placed into the pelvis and this was secured to the skin. The omentum was drawn down over the underlying bowel and the wound protector removed. Gloves and instruments were changed and the fascia elevated and Seprafilm placed between the omentum and anterior abdominal wall. The fascia was closed under direct vision with a running PDS suture with excellent technical result. We will was then copiously irrigated and skin reapproximated at intervals and the subcutaneous tissues packed with iodoform gauze. The former right BRENNON site was also packed with iodoform gauze and sterile dressings placed. Attention was then turned to maturation of the colostomy. The staple line was resected and an everted kasaan type osteotomy created by securing the dermis to a full thickness bite of the edge and a Lembert suture through the seromuscular layers a couple centimeters proximally at all 4 quadrants. The edge of the colostomy was then secured to the dermis circumferentially and a ostomy appliance placed. The patient was extubated and taken to the recovery room in good condition. Estimated blood loss was minimal. No complications. Specimen is left colon.
[2018-03-26] MEDS: hydrALAZINE 25 MG TAB PO SCH ×3 (08:51→20:10)
[2018-03-26] MEDS: Lisinopril 20 MG TAB PO SCH ×2 (08:52→20:09)
[2018-03-26] MEDS: Metoprolol Tartrate 100 MG TAB PO SCH ×2 (08:52→20:10)
[2018-03-26] MEDS: Amlodipine 10 MG TAB PO SCH (08:52)
[2018-03-26] MEDS: Enoxaparin Sodium 40 MG/0.4 ML SYRINGE SC SCH (08:53)
[2018-03-26] MEDS: cloNIDine 0.2mg/24 Hour PATCH TD SCH (08:53)
--- NOTE | 2018-03-26 11:22 | PRG ---
DATE OF SERVICE: 03/26/2018 SUBJECTIVE: The patient is seen and examined at bedside. One of the family members is present during my visit. He noticed that he passed a little bit of gas this morning, but his abdomen is still distended. OBJECTIVE: VITAL SIGNS: Blood pressure is 143/93, pulse is 90, temperature is 98.9, maximal temperature is 99.2, respiratory rate is 20, O2 saturation 95% on room air. HEENT: His head is atraumatic and normocephalic. Eyes are PERRLA. Sclerae are nonicteric. Oral mucosa is moist. NECK: Supple. LUNGS: Clear. HEART: S1 and S2 normal. No S3. No S4. ABDOMEN: Distended. Colostomy is present. The bag is with some air not much though. Bowel sounds almost none with sporadic sounds. There is a drain on the left side of the abdomen, which is draining serosanguineous fluid. EXTREMITIES: No clubbing, cyanosis, or edema. NEUROLOGICAL: He is able to move his all four extremities. He follows my commands. LABORATORY DATA: White count of 26.7, hemoglobin 13.3, hematocrit 40.9, and platelet count 617, 87.2% of neutrophils. Normal electrolytes. Creatinine 1.16, BUN 14, glycemia is ranging from 92 to 144, calcium 9.3. IMPRESSION: 1. Perforated sigmoid diverticulitis with unexpected mass in descending colon, status post left colectomy. 2. Ileus. 3. Tinnitus. 4. Hypertension. 5. Cannabis user. PLAN: The plan is to continue current regimen. His blood pressure seems to be doing significantly better on current regimen. We will continue antibiotic. We will continue p.r.n. pain medications, which is morphine, and General Surgery is going to manage that. Job ID: [id number]
--- NOTE | 2018-03-26 13:04 | PDOC.GSPN ---
Surgery Progress Note: Subj - Subjective Narrative: Patient is feeling better today. He started passing gas through his colostomy and no longer feels bloated and uncomfortable. He is tolerating clear liquids without nausea. Vital signs are normal he is afebrile and his blood pressure is much better controlled. BRENNON put out 435 yesterday of serosanguineous fluid and urine output was 1725+3 and measured voids. White count is still elevated at 26, 000. Platelets are up to 617. Abdomen is soft and less distended and tympanitic. Bowel sounds are present and there is gas in his colostomy bag. Assessment/plan: Status post left colectomy and transverse colostomy. Clinically doing well with early return of bowel function. Tolerating clear liquids and will likely advance to full liquids tomorrow. He has persistent leukocytosis for unclear reasons. This may all be reactive. Continue current management. Surgery Progress Note: Obj - Vital signs Vital signs: Vital Signs - Most Recent Temp Pulse Resp BP Pulse Ox 97.8 F 81 20 143/96 H 97 03/26/18 11:35 03/26/18 11:35 03/26/18 11:35 03/26/18 11:35 03/26/18 11:35 Surgery Progress Note: Results - Labs Result Diagrams: 03/26/18 05:43 03/26/18 05:43 Lab results: Laboratory Results - last 24 hr 03/26/18 03/26/18 05:43 05:43 WBC 26.7 H RBC 4.55 L Hgb 13.3 L Hct 40.9 L MCV 90.0 MCH 29.1 MCHC 32.4 RDW 12.8 Plt Count 617 H MPV 7.1 L Neutrophils % 87.2 H Lymphocytes % 7.0 L Monocytes % 5.0 Eosinophils % 0.5 Basophils % 0.2 Neutrophils # 23.3 H Lymphocytes # 1.9 Monocytes # 1.3 H Eosinophils # 0.1 Basophils # 0.1 Sodium 136 Potassium 4.2 Chloride 103 Carbon Dioxide 23 Anion Gap 14 BUN 14 Creatinine 1.16 Estimated GFR (MDRD) 84 Glucose 144 H Calcium 9.3
[2018-03-26] MEDS: Pantoprazole 40 MG VIAL IVP SCH (20:06)
[2018-03-27] MEDS: metroNIDAZOLE 500 MG in Premix Bag 1 BAG IVPB SCH ×5 (00:06→23:44)
[2018-03-27] MEDS: Piperacillin/Tazobactam 3.375 GM in Sodium Chloride 0.9% 100 ML IVPB SCH ×4 (02:37→21:04)
[2018-03-27] MEDS: Morphine 4 MG/ML VIAL SLOW IVP PRN ×3 (05:26→21:08)
[2018-03-27] MEDS: Enoxaparin Sodium 40 MG/0.4 ML SYRINGE SC SCH (09:32)
[2018-03-27] MEDS: Lisinopril 20 MG TAB PO SCH ×2 (09:32→21:07)
[2018-03-27] MEDS: hydrALAZINE 25 MG TAB PO SCH ×3 (09:32→21:07)
[2018-03-27] MEDS: Metoprolol Tartrate 100 MG TAB PO SCH ×2 (09:33→21:06)
[2018-03-27] MEDS: Amlodipine 10 MG TAB PO SCH (09:33)
--- NOTE | 2018-03-27 10:12 | PRG ---
DATE OF SERVICE: 03/27/2018 SUBJECTIVE: The patient is seen and examined at bedside. He started passing some gas into the bag. OBJECTIVE: VITAL SIGNS: Blood pressure is 148/94, pulse is 81, temperature 98.3, maximal temperature is 98.9, pulse oximetry is 94% on room air, his respirations are 24. HEENT: Head is atraumatic and normocephalic. Eyes are PERRLA. Sclerae are nonicteric. Oral mucosa is moist. NECK: Supple. No lymphadenopathy. Thyroid is not palpable. LUNGS: Clear. HEART: S1, S2 normal. No S3. No S4. ABDOMEN: His colostomy is in place. The bag has some dark brownish stool, small amount on the drain on the left side of the abdomen is draining less, just pinkish fluid. Bowel sounds are present. Abdomen is somewhat bloated. It is not tender to palpation. EXTREMITIES: No clubbing, cyanosis, or edema. NEUROLOGIC: He is alert and oriented x4. There is no any motor or sensory deficits. Cranial nerves are intact. LABORATORY DATA: None today. IMPRESSION: 1. Perforated sigmoid diverticulitis with unexpected mass in descending colon, status post left colectomy. 2. Ileus, resolving. 3. Peritonitis. 4. Hypertension. DISCUSSION: The patient is doing gradually better. His postop ileus is resolving. He is on full liquid diet at this point. He has good urine output. He has some stool in the bag. His blood pressure is under relatively well control. MEDICATIONS: He is on: 1. Amlodipine 10 mg once a day. 2. Clonidine 0.2 mg transdermal patch, change every 7 days. 3. Hydralazine 75 mg three times a day. 4. Lisinopril 20 mg twice a day. 5. Metoprolol 100 mg twice a day. 6. We will continue his antibiotics, which is Zosyn and metronidazole. 7. We will continue DVT prophylaxis with 40 mg of Lovenox. Job ID: [id number]
[2018-03-27] MEDS: Pantoprazole 40 MG VIAL IVP SCH (21:07)
--- NOTE | 2018-03-27 22:20 | PDOC.GSPN ---
Surgery Progress Note: Subj - Subjective Narrative: Patient continues to slowly improve. He is tolerating full liquids and feels like he is ready for solid food. His colostomy is putting out liquid stool and gas and he is no longer bloated or uncomfortable. Vital signs are stable and he is afebrile. His abdomen is soft and nondistended and he has only minimal queenie- incisional tenderness. The colostomy appears healthy and there is stool and gas in the bag. Assessment/plan: Doing better status post left colectomy and transverse colostomy. Bowel function appears to be returning and we will advance his diet. BRENNON output is entirely serous we will likely remove this tomorrow. May be ready for discharge home in the next day or 2 on oral antibiotics. Surgery Progress Note: Obj - Vital signs Vital signs: Vital Signs - Most Recent Temp Pulse Resp BP Pulse Ox 98.6 F 90 18 148/92 H 95 03/27/18 15:30 03/27/18 21:07 03/27/18 15:30 03/27/18 21:07 03/27/18 15:30 Surgery Progress Note: Results - Labs Result Diagrams: 03/26/18 05:43 03/26/18 05:43
[2018-03-28] MEDS: Morphine 4 MG/ML VIAL SLOW IVP PRN ×3 (01:13→15:00)
[2018-03-28] MEDS: Piperacillin/Tazobactam 3.375 GM in Sodium Chloride 0.9% 100 ML IVPB SCH ×3 (04:04→14:51)
[2018-03-28] MEDS: metroNIDAZOLE 500 MG in Premix Bag 1 BAG IVPB SCH ×3 (05:58→17:42)
[2018-03-28 07:49] LABS: Hemoglobin 12.2 g/dL (14.0-18.0); Mean Corpuscular HGB CONC 32.4 g/dL (32.0-36.0); Mean Corpuscular Volume 89.3 fL (78.0-98.0); Mean Platelet Volume 7.3 fL (7.4-10.4); Platelet Count 617 thou/uL (130-400); RBC Distribution Width 12.6 % (11.5-14.5); Red Blood Cell (RBC) Count 4.22 mill/uL (4.70-6.10); White Blood Cell (WBC) Count 23.1 thou/uL (4.8-10.8)
[2018-03-28 07:57] LABS: Anion Gap 16 mmol/L (10-20); BUN (Urea Nitrogen) 9 mg/dL (8.9-20.6); Calc. Creatinine Clearance 168 mL/min (70-130); Carbon Dioxide 21 mmol/L (22-29); Chloride 104 mmol/L (98-107); Estimated GFR-MDRD Greater than 90; Glucose 113 mg/dL (70-105); Potassium 3.7 mmol/L (3.5-5.1); Sodium 137 mmol/L (136-145)
[2018-03-28] MEDS: Amlodipine 10 MG TAB PO SCH (08:23)
[2018-03-28] MEDS: Lisinopril 20 MG TAB PO SCH ×2 (08:23→20:49)
[2018-03-28] MEDS: Metoprolol Tartrate 100 MG TAB PO SCH ×2 (08:23→20:49)
[2018-03-28] MEDS: Enoxaparin Sodium 40 MG/0.4 ML SYRINGE SC SCH (08:24)
[2018-03-28] MEDS: hydrALAZINE 25 MG TAB PO SCH ×3 (08:24→20:49)
--- NOTE | 2018-03-28 08:58 | PRG ---
DATE OF SERVICE: 03/28/2018 SUBJECTIVE: The patient is seen and examined at bedside. He is doing well. He does not have much complaints to offer. He is on full regular diet. OBJECTIVE: VITAL SIGNS: Blood pressure is 156/99, pulse is 83, temperature is 98.4, respirations 16, and O2 saturation is 97% on room air. HEAD: Atraumatic and normocephalic. EYES: PERRLA. Sclerae are nonicteric. Oral mucosa is moist. NECK: Supple. LUNGS: Clear. HEART: S1, S2 normal. No S3, no S4. No evidence of any murmur. ABDOMEN: There is a colostomy on the right side and BRENNON drain on the left. Bowel sounds are present, sluggish, distant. No guarding. No masses. EXTREMITIES: No clubbing, cyanosis, or edema. NEUROLOGIC: He is alert and oriented x3. There is no any motor or sensory deficits. LABORATORY DATA: Labs showed white count of 23.1, hemoglobin 12.2, hematocrit 37.7, and platelet count is 617. Chemistry is within normal limits except for CO2 which is 21, and glucose which is 113. IMPRESSION: 1. Status post perforated sigmoid diverticulitis with unexpected mass in descending colon, status post left colectomy, transverse colostomy. His bowel function is back gradually. He is able to tolerate a regular food. 2. Hypertension, under significantly better control with several agents. 3. Ileus, resolved. 4. Peritonitis, on antibiotics, which are metronidazole and Zosyn. PLAN: General surgery will make decision when he can be released home, but he will need to stay on those several agents for high blood pressure what he is on now and he will need to have follow up with primary care physician in order to try to eliminate some of them gradually and for now, he will continue his lisinopril, amlodipine, metoprolol, hydralazine, and clonidine patch. Job ID: [id number]
[2018-03-28 09:45] LABS: Band 1 % (5-11); Eosinophils 5 % (0-10); Lymphocytes 7 % (21-51); MDiff Complete? YES; Monocytes 4 % (0-10); Neutrophil 79 % (42-75); RBC Morphology Normal; Reactive Lymphocytes 3 % (0-10)
[2018-03-28] MEDS ORDERED: HYDROcodone/Acetaminophen 7.5/325 mg Tablet PO PRN (19:13)
[2018-03-28] MEDS: Ciprofloxacin 500 MG TAB PO SCH (20:49)
[2018-03-28] MEDS: metroNIDAZOLE 500 MG TAB PO SCH (20:49)
[2018-03-28] MEDS: Pantoprazole 40 MG VIAL IVP SCH (20:50)
--- NOTE | 2018-03-28 21:11 | PDOC.GSPN ---
Surgery Progress Note: Subj - Subjective Narrative: Patient feels pretty good. He is not having any pain. He is passing gas and stool through his colostomy. No nausea. BRENNON output is completely serous. White count is down a little. I removed his BRENNON and the packing from his wounds. There was a little bit of drainage so the wounds were repacked. Antibiotics were switched from IV to by mouth, as was his pain medication. Assessment/plan: Perforated diverticulitis. Clinically improving. White count is still high but no fevers and no pain. Patient will be instructed on wound care. Once he and his family are able to care for his wounds and his colostomy, he will be discharged home. I anticipate discharge tomorrow. Surgery Progress Note: Obj - Vital signs Vital signs: Vital Signs - Most Recent Temp Pulse Resp BP Pulse Ox 98.8 F 90 16 151/98 H 96 03/28/18 20:11 03/28/18 20:49 03/28/18 20:11 03/28/18 20:49 03/28/18 20:11 Surgery Progress Note: Results - Labs Result Diagrams: 03/28/18 06:35 03/28/18 06:35 Lab results: Laboratory Results - last 24 hr 03/28/18 06:35 Neutrophils % (Manual) 79 H Band Neuts % (Manual) 1 L Lymphocytes % (Manual) 7 L Reactive Lymphs % 3 Monocytes % (Manual) 4 Eosinophils % (Manual) 5 Basophils % (Manual) 1 Neutrophils # Not Reportable Lymphocytes # Not Reportable RBC Morph Comment Normal
[2018-03-29] MEDS: HYDROcodone/Acetaminophen 7.5/325 mg Tablet PO PRN ×2 (01:14→07:55)
[2018-03-29] MEDS: Metoprolol Tartrate 100 MG TAB PO SCH (07:54)
[2018-03-29] MEDS: Lisinopril 20 MG TAB PO SCH (07:54)
[2018-03-29] MEDS: Ciprofloxacin 500 MG TAB PO SCH (07:54)
[2018-03-29] MEDS: Amlodipine 10 MG TAB PO SCH (07:54)
[2018-03-29] MEDS: hydrALAZINE 25 MG TAB PO SCH (07:55)
[2018-03-29] MEDS: metroNIDAZOLE 500 MG TAB PO SCH (07:55)
[2018-03-29] MEDS: Enoxaparin Sodium 40 MG/0.4 ML SYRINGE SC SCH (07:55)
[2018-03-29 08:31] LABS: #Eosinphils 0.3 thou/uL (0.0-0.7); #Lymphocytes 0.9 thou/uL (1.20-3.40); #Monocytes 0.5 thou/uL (0.11-0.59); #Neutrophils 5.9 thou/uL (1.40-6.50); %Basophils 0.4 % (0.0-1.0); %Lymphocytes 12.2 % (21.0-51.0); %Monocytes 6.9 % (0.0-10.0); %Neutrophils 76.6 % (42.0-75.0); Hemoglobin 13.8 g/dL (14.0-18.0); Mean Corpuscular HGB CONC 33.1 g/dL (32.0-36.0); Mean Corpuscular Hemoglobin 29.7 pg (27.0-31.0); Mean Corpuscular Volume 89.9 fL (78.0-98.0); Mean Platelet Volume 6.8 fL (7.4-10.4); Platelet Count 522 thou/uL (130-400); RBC Distribution Width 12.2 % (11.5-14.5); Red Blood Cell (RBC) Count 4.62 mill/uL (4.70-6.10); White Blood Cell (WBC) Count 23.1 thou/uL (4.8-10.8)
[2018-03-29 10:11] LABS: Band 2 % (5-11); Eosinophils 2 % (0-10); Lymphocytes 14 % (21-51); Monocytes 3 % (0-10); Myelocyte 1 % (0-0); Reactive Lymphocytes 1 % (0-10)
[2018-03-29 10:16] LABS: Platelet Morphology Comment Appears Increased
[2018-03-29 10:18] LABS: Neutrophil 78 % (42-75)
[2018-03-29 12:39] VITALS: BP 144/94; TEMP 97.4
--- NOTE | 2018-03-29 14:22 | PDOC.PN ---
- Subjective Encounter Start Date: 03/29/18 Encounter Start Time: 14:21 Mr. Hdez was seen today in follow-up of HTN and sigmoid abscess. He does not have any complaints. - Objective MAR Reviewed: Yes Vital Signs & Weight: Vital Signs (12 hours) Temp Pulse Resp BP BP BP Pulse Ox 03/29/18 12:38 97.4 F L 94 16 144/94 H 100 03/29/18 08:15 97 03/29/18 07:55 79 147/90 H 03/29/18 07:54 147/90 H 03/29/18 07:26 98.2 F 79 18 147/90 H 97 03/29/18 04:00 98.4 F 76 17 131/82 97 Weight Admit Weight 270 lb Weight 270 lb I&O: 03/28/18 03/29/18 03/30/18 06:59 06:59 06:59 Intake Total 1500 1600 Output Total 1400 3995 Balance 100 -2395 Result Diagrams: 03/29/18 08:02 03/28/18 06:35 Phys Exam - Physical Examination HEENT: PERRLA Respiratory: no wheezing, no rales, no rhonchi, clear to auscultation bilateral Cardiovascular: RRR, no significant murmur, no rub Gastrointestinal: soft, non-tender, no distention, positive bowel sounds Musculoskeletal: no edema Dx/Plan (1) Diverticular disease of intestine with perforation and abscess Code(s): K57.80 - DVTRCLI OF INTEST, PART UNSP, W PERF AND ABSCESS W/O BLEED Status: Acute Comment: Persistent feculent leak from drains, taken to surgery today for sigmoidectomy (2) HTN (hypertension) Code(s): I10 - ESSENTIAL (PRIMARY) HYPERTENSION Status: Chronic Qualifiers: Hypertension type: essential hypertension Qualified Code(s): I10 - Essential (primary) hypertension Comment: Labile, increase Metoprolol 100mg BID, add Norvasc 10mg daily, Hydralazine 20mg IV q4h prn, Clonidine 0.1mg po q4h prn, Add Clonidine patch 0.2mg and increase Lisinopril 20mg BID, start Hydralazine 75mg TID. Well controlled now. - Plan * HTN- blood pressure is within a reasonable range. * Sigmoid abscess- he has been cleared for discharge * I have discussed his medications, and the need for compliance, and close outpatient follow-up.
--- NOTE | 2018-03-29 16:37 | DIS ---
DATE OF ADMISSION: 03/16/2018 DATE OF DISCHARGE: 03/29/2018 TRANSITIONAL CARE SUMMARY. PRIMARY CARE PHYSICIAN: [facility]. DISCHARGE DISPOSITION: Home. PRIMARY DISCHARGE DIAGNOSES: 1. Sigmoid abscess with peritonitis. 2. Hypertension. 3. Obesity. DISCHARGE MEDICATIONS: Include; 1. Lopressor 100 mg twice a day. 2. Zestril 20 mg twice daily. 3. Hydralazine 75 mg t.i.d. 4. Clonidine 0.2 mg weekly. 5. Amlodipine 10 mg daily. The patient was also discharged on Flagyl, Cipro, and hydrocodone. PROCEDURES DONE: During the admission; the patient had a CT scan of the abdomen and pelvis on 03/16/2018, demonstrating evidence for perforated viscus. It was limited due to noncontrast technique. There was scattered free air seen. The patient had a laparoscopic colectomy with transverse colostomy. CODE STATUS: Full code. ALLERGIES: NO KNOWN DRUG ALLERGIES. HOSPITAL COURSE: Mr. Hdez is a pleasant 42-year-old gentleman, who presented to the emergency room after he experienced the acute onset of severe abdominal pain. He was evaluated in the ER and found to have evidence of a possible perforated viscus. He was admitted to the Surgery Service and underwent an emergent laparoscopic colectomy and transverse colostomy placement. He was found to have sigmoid diverticulitis, likely as the cause. The Hospitalist Service was consulted for blood pressure management. He proved to have very difficult to control blood pressure and it required 4 different antihypertensive medications in order to control his pressure. At the time of discharge, his blood pressure was much improved at 144/94. He was counseled extensively on the need to be compliant with his blood pressure medications and will need close outpatient followup. Job ID: [id number]
== END 2018-03-29 15:00 | disposition home or self-care (01) | DRG 329 ==
LOC: ERS 11:56 → SDC 13:09 → SURG A 18:44 → SDC 18:50 → SURG A 18:50
PROVIDERS: ADMIT Surgery; ATTEND Surgery
PROC: 0D9N0ZZ Drainage of Sigmoid Colon, Open Approach (ICD-10-PCS; 2018-03-16)
PROC: 0WQF4ZZ Repair Abdominal Wall, Percutaneous Endoscopic Approach (ICD-10-PCS; 2018-03-16)
PROC: 3E0M45Z Introduction of Adhesion Barrier into Peritoneal Cavity, Percutaneous Endoscopic Approach (ICD-10-PCS; 2018-03-16)
PROC: 0W9G3ZZ Drainage of Peritoneal Cavity, Percutaneous Approach (ICD-10-PCS; 2018-03-21)
PROC: 0DTG0ZZ Resection of Left Large Intestine, Open Approach (ICD-10-PCS; principal; 2018-03-24)
PROC: 0D1L0Z4 Bypass Transverse Colon to Cutaneous, Open Approach (ICD-10-PCS; 2018-03-24)
DX: K57.20 Diverticulitis of large intestine with perforation and abscess without bleeding (principal); K65.0 Generalized (acute) peritonitis; K56.7 Ileus, unspecified; I10 Essential (primary) hypertension; K42.9 Umbilical hernia without obstruction or gangrene; B96.20 Unspecified Escherichia coli [E. coli] as the cause of diseases classified elsewhere; K59.09 Other constipation; E66.01 Morbid (severe) obesity due to excess calories; Z91.14 Patient's other noncompliance with medication regimen; F17.210 Nicotine dependence, cigarettes, uncomplicated; Z68.34 Body mass index [BMI] 34.0-34.9, adult
CPT/HCPCS: 36415; 36416; 49020; 74177; 76700; 76770; 77002; 80048; 80053; 83970; 84100; 85025; 85060; 85610; 85730; 87070; 87076; 87077; 87186; 87205; 88307; 89051; 93005; 93010; 99284; C1729; C9113; J0131; J0360; J1100; J1170; J1650; J1885; J2001; J2250; J2270; J2405; J2543; J2704; J3010; J3490; J7050; Q9966; S0028

== ENCOUNTER 2018-12-24 19:01 | Emergency (ER) | payer SELFPAY | END 2018-12-24 22:23 | disposition home or self-care (01) | LOC: ERS 19:01 | DX: F19.10 Other psychoactive substance abuse, uncomplicated (principal); K63.89 Other specified diseases of intestine; I10 Essential (primary) hypertension; F31.9 Bipolar disorder, unspecified; F17.210 Nicotine dependence, cigarettes, uncomplicated | CPT/HCPCS: 96360; 96361 ==